=== PATIENT | female | born 1985 | race Caucasian/White ===

== ENCOUNTER 2022-09-07 17:03 | Emergency (ER) | payer OTHER ==
--- OUTSIDE RECORDS SUMMARY | 2022-09-07 17:07 | XMS REPORT | Continuity of Care Document ---
:1985 Author Organization [facility] t Address [address] [place] [address] Care Team Providers Name Role Phone SU PARRA Primary Care Physician Unavailable Brian Attending Clinician Unavailable AMBROSIO VARGAS Attending Clinician Unavailable MOLLY WOODALL Attending Clinician Unavailable Molly Gifford Attending Clinician Unknown, Attending Attending Clinician Unavailable UNKNOWN, ATTENDING Attending Clinician Unavailable Doctor Unassigned, [place] Attending Clinician Unavailable Adrianna Carmichael NP Attending Clinician ADRIANNA CARMICHAEL Attending Clinician Unavailable Radu Middleton Attending Clinician Marcelo Michaels Attending Clinician Brian Admitting Clinician Unavailable ADRIANNA CARMICHAEL Admitting Clinician Unavailable Marcelo Michaels Admitting Clinician Payers Payer Name Policy Type Policy Number Effective Date Expiration Date Gina mathew [facility] - [id number] 2020 [facility] 00:00:00 (MEDICARE REPLACEMENT/ADVANTA GE - HMO) [facility] [id number] 2020 [employer] [place] - 00:[place]:00 DUAL ELIGIBLE (MEDICARE REPLACEMENT/ADVANTA GE - HMO) [facility] DUAL [id number] 2021 [facility] HMO D SNP 00:00:00 MEDICAID OF [place] [id number] 2013 00:00:00 Problems Condition Condition Condition Status Onset Resolution Last Treating Co mments Source Name Details Category Date Date Treatment Clinician Date High High Disease Active 2021-10 Univers cholestero cholestero 0-14 it y of l l 00:00: [place] 00 Medical Branch Hypothyroi Hypothyroi Disease Active U nivers dism due dism due 3-11 [place]y of to defect to defect [place] in thyroid in thyroid 00 Mi dical 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 Vitamin D Vitamin D Disease Active Uni vers deficiency deficiency 9-10 it y of , , 00:00: [place] unspecifie unspecifie 00 Me dical d d Branch ACUTE ACUTE Diagnosis Active 2017-102018-09-09 Mem oria APPENDICIT APPENDICIT 0-27 04:25:00 l IS IS Active 00:00: Kirill n 08/26/2018 00 [facility] Hypothyroi Hypothyro Problem 2019-03-16 Memoria dism, idism, 11:35:02 l unspecifie unspecifie He rmann d d 03/16/2019 [facility] Pure Pure Problem 2019-03-16 Memor ia hyperchole hyperchole 11:35:02 l sterolemia sterolemia He rmann , , unspecifie unspecifie d d 03/16/2019 [facility] Unspecifie Unspecifi Problem 2019-03-16 Memoria d asthma, ed asthma, 11:35:02 l uncomplica uncomplica He rmalf haleigh haleigh 03/16/2019 [facility] Allergy Allergy Problem 2019-03-16 Me moria status to status to 11:35:02 l penicillin penicillin He rmann 9 [facility] Amnesia Amnesia Problem Active 2021-01-01 Mi moria (finding) (finding) 23:24:44 l Active Chad Problem 01/01/2021 [facility] Hypertensi Hypertens Problem Active 2021-01-01 Memoria ve yuan 23:24:44 l disorder, disorder, Herm alf systemic systemic arterial arterial (disorder) (disorder) Active Problem 01/01/2021 [facility] Hyperlipid Hyperlipi Problem Active 2021-01-01 Memoria emia demia 23:24:44 l (disorder) (disorder) He rmann Active Problem 01/01/2021 [facility] Hypothyroi Hypothyro Problem Active 2021-01-01 Memoria dism idism 23:24:44 l (disorder) (disorder) He rmann Active Problem 01/01/2021 [facility] 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 Gerson cathy impairment impairment 23:24:44 l (disorder) (disorder) He rmann Active Problem 01/01/2021 [facility] Migraine Migraine Problem Active 2021-01-01 Memoria (disorder) (disorder) 23:24:44 l Active [place] Problem 01/01/2021 [facility] No known No known Disease Unive rs active active ity of problems problems [place] [facility] Carbuncle Carbuncle Problem Active [facility] Breast Breast Problem Active [place] [facility] History of Past Illness Condition Condition Condition Status Onset Resolution Last Treating Co mments Source Name Details Category Date Date Treatment Clinician Date Unspecifie Problem 2017-102019-03-16 2019-03-16 Memoria d acute Unspecifie - 11:35:02 11:35:02 l appendicit d acute 03:58: Lucia nn is appendicit 50 is 09/01/2018 03/16/2019 [facility] Allergies, Adverse Reactions, Alerts Allergy Allergy Status Severity Reaction(s) Onset Inactive Treating Comm ents Source Name Type Date Date Clinician Amoxicil Propensi Active Nausea Univer s christine ty to and/or 02-26 ity of adverse Vomiting 00:00: [place] reaction 00 Medical s Branch Penicill Propensi Active Nausea 0 Univer s in ty to and/or 02-26 ity of adverse Vomiting 00:00: [place] reaction 00 Medical s Branch AMOXICIL DRUG Active N/V 0 Univers CHRISTINE INGREDI - ity of 00:00: [place] 00 Medical Branch PENICILL DRUG Active N/V 0 Univers IN INGREDI 4- ity of 00:00: [place] 00 Medical Branch penicill penicill Active Memori a ins ins l Chad Amoxicil Allergy Active Vomiting [place] [facility] Social History Social Habit Start Date Stop Date Quantity Comments Source Exposure to 2022-08-03 2022-08-13 Not sure [facility] SARS-CoV-2 00:00:00 17:52:00 [place] [facility] (event) Branch Tobacco use and 2022-08-13 2022-08-13 Smokeless tobacco Un iversity of exposure 00:00:00 00:00:00 non-user [facility] Social History 2018-08-27 2018-08-27 [facility] Lesia traore 09:20:36 09:20:36 Sex [birth year] Universit y of 00:00:00 00:00:00 [facility] Smoking Status Start Date Stop Date Source Never smoked tobacco [facility] Tobacco smoking consumption Univ ersity of [facility] unknown Branch Medications Ordered Filled Start Stop Current Ordering Indication Dosage Frequency Signature Comments Components Source Medication Medication Date Date Medication? Clinician (SIG) Name Name sulfamethox 2021-10- Yes [id number] 1{tbl} Take 1 Univers azole-trime 0-14 10-22 tablet by it y of thoprim 00:00: 04:59 mouth in [place] (BACTRIM 00 :00 the Medical DS) 800-160 morning Branc h mg per and 1 tablet tablet in the evening. Do all this for 7 days. atorvastati Yes 10mg Take 10 mg Univers n 10 mg 8-23 by mouth ity of tablet 00:00: at [place] 00 bedtime. Medical Branch levothyroxi 2022- Yes 88ug Take 88 Un gaetano ne 88 mcg 8-13 08-14 mcg by ity of tablet 00:00: 04:59 mouth. [place] 00 :00 Medical Branch montelukast Yes TAKE 1 Univ ers 10 mg 7-22 TABLET BY ity of tablet 00:00: MOUTH ONCE [place] 00 DAILY AT Medical NIGHT Branch Cholecalcif 0 Yes 2000U Take 2,000 Univers amy, 4-20 Units by ity of Vitamin D3, 00:00[place]. [place] 50 mcg 00 Medical (2,000 Branch unit) capsule benzonatate 2020- No 200mg 200 mg, U nivers (TESSALON 4-30 04-30 Oral, ONCE ity of PERLES) 06:45: 05:44 NOW, 1 [place] capsule 200 00 :00 dose, Fri Med ical mg 02/27/21 at Branch 0145, Routine albuterol 0 Yes [id number] 2{puff} Inhale 2 Univers 90 4-30 Puffs ity of mcg/actuati 00:00: every 4 Rajan as on inhaler 00 (four) Medical hours as Branch needed for Wheezing or Shortness of Breath. benzonatate Yes [id number] 100mg Take 1 Univers 100 mg 4-30 capsule by ity of capsule 00:00: mouth 3 [place] 00 (three) Medical times Branch daily as needed for Cough. albuterol Yes [id number] 2{puff} Inhale 2 Univers 90 4-30 Puffs ity of mcg/actuati 00:00: every 4 Rajan as on inhaler 00 (four) Medical hours as Branch needed for Wheezing or Shortness of Breath. benzonatate Yes [id number] 100mg Take 1 Univers 100 mg 4-30 capsule by ity of capsule 00:00: mouth 3 [place] 00 (three) Medical times Branch daily as needed for Cough. albuterol Yes [id number] 2{puff} Inhale 2 Univers 90 4-30 Puffs ity of mcg/actuati 00:00: every 4 Rajan as on inhaler 00 (four) Medical hours as Branch needed for Wheezing or Shortness of Breath. benzonatate Yes [id number] 100mg Take 1 Univers 100 mg 4-30 capsule by ity of capsule 00:00: mouth 3 00 (three) Medical times Branch daily as needed for Cough. predniSONE 2020- No [id number] 20mg Take 1 Univers 20 mg 4-30 05-08 tablet by ity of tablet 00:00: 04:59 mouth [place] 00 :00 daily for Medical 7 days. Branch atorvastati Yes 0 Memori a n 10 mg 8-26 Refill(s) l oral tablet 20:26: Kirill n 00 levothyroxi 2019- Yes 0 Memori a ne 75 mcg 8-26 Refill(s) l (0.075 mg) 20:26: [place] oral tablet 00 montelukast 2019-0 Yes 0 Memori a 10 mg oral 8-26 Refill(s) l tablet 20:26: [place] 00 predniSONE 2019- Yes 0 Memoria 20 mg oral 8-26 Refill(s) l tablet 20:26: [place] atorvastati Yes 0 Memori a n 10 mg 8-26 Refill(s) l oral tablet 20:26: Kirill n 00 levothyroxi Yes 0 Memori a ne 75 mcg 8-26 Refill(s) l (0.075 mg) 20:26: [place] oral tablet 00 montelukast Yes 0 Memori a 10 mg oral 8-26 Refill(s) l tablet 20:26: [place] 00 predniSONE Yes 0 Memoria 20 mg oral 8-26 Refill(s) l tablet 20:26: [place] 00 atorvastati 2017-10 No Notes: Gerson cathy n 0-29 (Same As: l 02:00: Lipitor) atorvastati 2017-10 No Notes: Gerson cathy n 0-29 (Same As: l 02:00: Lipitor) albuterol 2017-10 No Notes: SEE Me moria 0-28 RT l 14:07: DOCUMENTAT [place] 00 ION (Same as: Proventil) albuterol 2017-10 No Notes: SEE Me moria 0-28 RT l 14:07: DOCUMENTAT [place] 00 ION (Same as: Proventil) montelukast 2017-10 No Notes: Gerson cathy 0-28 (Same l 14:00: as: ir) Thyroxine 2017-10 No Notes: Memori a 0-28 Take 1 l 14:00: hour Chad 00 before or 2 hours after meal; Enteral feeds may interefere with the absorption of this medication . (Same as:Synthro id, Levothroid ) montelukast 2017-10 No Notes: Gerson cathy 0-28 (Same l 14:00: as:Sing ir) Thyroxine 2017-10 No Notes: Memori a 0-28 Take 1 l 14:00: hour [place] 00 before or 2 hours after meal; Enteral feeds may interefere with the absorption of this medication . (Same as:Synthro id, Levothroid ) neostigmine 2017-10 No Route: IV, Memoria (ANES) 0-28 Drug form: l 13:58: INJ, ONCE, Stop date: 08/27/18 8:58:00 CDT ondansetron 2017-10 No Route: IV, Memoria (ANES) 0-28 Drug form: l 13:58: INJ, ONCE, Stop date: 08/27/18 8:58:00 CDT dexamethaso 2017-10 No Route: IV, Memoria ne (ANES) 0-28 Drug form: l 13:58: INJ, ONCE, Stop date: 08/27/18 8:58:00 CDT ketOROLAC 2017-10 No IV, ONCE Gerson cathy (ANES) 0-28 l 13:58: glycopyrrol 2017-10 No Route: IV, Memoria ate (ANES) 0-28 Drug form: l 13:58: INJ, ONCE, Stop date: 08/27/18 8:58:00 CDT neostigmine 2017-10 No Route: IV, Memoria (ANES) 0-28 Drug form: l 13:58: INJ, ONCE, Stop date: 08/27/18 8:58:00 CDT ondansetron 2017-10 No Route: IV, Memoria (ANES) 0-28 Drug form: l 13:58: INJ, ONCE, Stop date: 08/27/18 8:58:00 CDT dexamethaso 2017-10 No Route: IV, Memoria ne (ANES) 0-28 Drug form: l 13:58: INJ, ONCE, Stop date: 08/27/18 8:58:00 CDT ketOROLAC 2017-10 No IV, ONCE Gerson cathy (ANES) 0-28 l 13:58: glycopyrrol 2017-10 No Route: IV, Memoria ate (ANES) 0-28 Drug form: l 13:58: INJ, ONCE, Stop date: 08/27/18 8:58:00 CDT Acetaminoph 2017-10 No Notes: Do M emoria en 300 MG / 0-28 not exceed l Codeine 13:57: 4gm/day of Herm acetaminop 30 MG Oral hen. (Same Tablet as: [Tylenol Tylenol with with Codeine #3] Codeine # 3) Morphine 2017-10 No Notes: Memoria 0-28 Preservati l 13:57: ve free. 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 (Same Tablet as: [Tylenol Tylenol with with Codeine #3] Codeine # 3) Morphine 2017-10 No Notes: Memoria 0-28 Preservati l 13:57: ve free. 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 clindamycin 2017-10 No Route: IV, Memoria (ANES) 0-28 Drug form: l 13:45: INJ, ONCE, [place] Stop date: 08/27/18 8:45:00 CDT clindamycin 2017-10 No Route: IV, Memoria (ANES) 0-28 Drug form: l 13:45: INJ, ONCE, [place] Stop date: 08/27/18 8:45:00 CDT fentaNYL 2017-10 No Route: IV, Mem oria (ANES) 0-28 Drug form: l 13:40: INJ, ONCE, Chad 00 Stop date: 08/27/18 8:40:00 CDT rocuronium 2017-10 No Route: IV, M emoria (ANES) 0-28 Drug form: l 13:40: INJ, ONCE, Chad 00 Stop date: 08/27/18 8:40:00 CDT propofol 2017-10 No Route: IV, Mem oria (ANES) 0-28 Drug form: l 13:40: INJ, ONCE, Chad 00 Stop date: 08/27/18 8:40:00 CDT fentaNYL 2017-10 No Route: IV, Mem oria (ANES) 0-28 Drug form: l 13:40: INJ, ONCE, [place] 00 Stop date: 08/27/18 8:40:00 CDT rocuronium 2017-10 No Route: IV, Татьяна emoria (ANES) 0-28 Drug form: l 13:40: INJ, ONCE, Chad 00 Stop date: 08/27/18 8:40:00 CDT propofol 2017-10 No Route: IV, Mem oria (ANES) 0-28 Drug form: l 13:40: INJ, ONCE, Stop date: 08/27/18 8:40:00 CDT midazolam 2017-10 No Route: IV, Me moria (ANES) 0-28 Drug form: l 13:35: SOLN, Chad 00 ONCE, Stop date: 08/27/18 8:35:00 CDT lidocaine 2017-10 No Route: IV, Me moria (ANES) 0-28 Drug form: l 13:35: INJ, ONCE, [place] 00 Stop date: 08/27/18 8:35:00 CDT midazolam 2017-10 No Route: IV, Me moria (ANES) 0-28 Drug form: l 13:35: SOLN, Chad 00 ONCE, Stop date: 08/27/18 8:35:00 CDT lidocaine 2017-10 No Route: IV, Me moria (ANES) 0-28 Drug form: l 13:35: INJ, ONCE, [place] 00 Stop date: 08/27/18 8:35:00 CDT Lactated 2017-10 No Route: IV, Mem oria Ringers 0-28 Total l Injection 12:53: Volume: Lucia nn IV (ANES) 00 1,000, 1000 mL Start date: 08/27/18 7:53:00 CDT, Stop date: 08/27/18 8:53:00 CDT Lactated 2017-10 No Route: IV, Mem oria Ringers 0-28 Total l Injection 12:53: Volume: Lucia nn IV (ANES) 00 1,000, 1000 mL Start date: 08/27/18 7:53:00 CDT, Stop date: 08/27/18 8:53:00 CDT influenza 2017-10 No Notes: Memori a virus 0-28 (Same as: l vaccine, : Fluzone Kirill n inactivated 52 Quadrivale nt, Fluarix Quadrivale nt) For 3 years of age and older (0.5 mL IM) Shake well before use influenza 2017-10 No Notes: Memori a virus 0-28 (Same as: l vaccine, : Fluzone Kirill n inactivated 52 Quadrivale nt, Fluarix Quadrivale nt) For 3 years of age and older (0.5 mL IM) Shake well before use 200 ACTUAT 2017-10 Yes 2 puff, Gerson cathy Albuterol 0-28 INHALER, l 0.09 09:24: Q4H, PRN [place] MG/ACTUAT 00 wheezing, Metered coughing, Dose or Inhaler shortness [ProAir of breath, HFA] # 1 ea, 1 Refill(s) montelukast 2017-10 Yes 10 mg, PO, Memoria 0-28 Daily, 0 l 09:24: Refill(s) [place] 00 atorvastati 2017-10 Yes 10 mg, PO, Memoria n 0-28 Bedtime, 0 l 09:24: Refill(s) [place] 00 Thyroxine 2017-10 Yes 75 Memoria 0-28 microgram, l 09:24: PO, Daily, [place] 00 0 Refill(s) 200 ACTUAT 2017-10 Yes 2 puff, Gerson cathy Albuterol 0-28 INHALER, l 0.09 09:24: Q4H, PRN [place] MG/ACTUAT 00 wheezing, Metered coughing, Dose or Inhaler shortness [ProAir of breath, HFA] # 1 ea, 1 Refill(s) montelukast 2017-10 Yes 10 mg, PO, Memoria 0-28 Daily, 0 l 09:24: Refill(s) [place] 00 atorvastati 2017-10 Yes 10 mg, PO, Memoria n 0-28 Bedtime, 0 l 09:24: Refill(s) Thyroxine 2017-10 Yes 75 Memoria 0-28 microgram, l 09:24: PO, Daily, 0 Refill(s) atorvastati atorvastati No atorvastat [place] 10 mg n 10 mg in 10 mg da tablet TAKE tablet TAKE tablet Medical 1 TABLET BY 1 TABLET BY TAKE 1 Group MOUTH AT MOUTH AT TABLET BY BEDTIME BEDTIME MOUTH AT BEDTIME levothyroxi levothyroxi No levothyrox [place] 88 mcg ne 88 mcg ine 88 mcg da tablet TAKE tablet TAKE tablet Medical 1 TABLET BY 1 TABLET BY TAKE 1 Group MOUTH ONCE MOUTH ONCE TABLET BY DAILY DAILY MOUTH ONCE DAILY montelukast montelukast No montelukas [place] 10 mg 10 mg t 10 mg da tablet TAKE tablet TAKE tablet Medical 1 TABLET BY 1 TABLET BY TAKE 1 Group MOUTH ONCE MOUTH ONCE TABLET BY DAILY AT DAILY AT MOUTH ONCE NIGHT NIGHT DAILY AT NIGHT sulfamethox sulfamethox No sulfametho [place] azole 800 azole 800 xazole 800 da mg-trimetho mg-trimetho mg-trimeth Medical prim 160 mg prim 160 mg oprim 160 Group tablet TAKE tablet TAKE mg tablet 1 TABLET BY 1 TABLET BY TAKE 1 MOUTH IN MOUTH IN TABLET BY THE MORNING THE MORNING MOUTH IN AND 1 AND 1 THE TABLET IN TABLET IN MORNING THE EVENING THE EVENING AND 1 FOR 7 DAYS FOR 7 DAYS TABLET IN THE EVENING FOR 7 DAYS Vital Signs Vital Name Observation Time Observation Value Comments Source BP Diastolic 2022-08-23 00:00:00 87 mm[facility]Hg[facility] Height 2022-08-23 00:00:00 62 [in_i] [facility] BMI (Body Mass 2022-08-23 00:00:00 33.1 kg/m2 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 Body Weight 2022-08-23 00:00:00 181 [lb_av] [facility] Systolic blood 2022-08-13 23:02:00 121 mm[Hg] Ruchi merritt of pressure [facility] Diastolic blood 2022-08-13 23:02:00 79 mm[Hg] Unive rsity of pressure [place] [facility] Heart rate 2022-08-13 23:02:00 86 /min Universi ty of [place] [facility] Body temperature 2022-08-13 23:02:00 37.11 Terri Univ ersity of [place] [facility] Respiratory rate 2022-08-13 23:02:00 18 /min Univ ersity of [place] [facility] Body height 2022-08-13 23:02:00 157.5 cm Universi ty [facility] [place] [facility] Body weight 2022-08-13 23:02:00 81.761 kg [facility] [place] [facility] BMI 2022-08-13 23:02:00 32.97 kg/m2 Universi ty [facility] [place] [facility] Oxygen saturation in 2022-08-13 23:02:00 97 /min University of Arterial blood by [facility] Pulse oximetry Branch Systolic blood 2021-02-27 07:01:48 133 mm[Hg] Univer sity of pressure [place] [facility] Diastolic blood 2021-02-27 07:01:48 85 mm[Hg] Unive rsity of pressure [place] [facility] Heart rate 2021-02-27 07:01:48 76 /min Universi ty [facility] [place] [facility] Respiratory rate 2021-02-27 07:01:48 19 /min Univ ersity of [place] [facility] Oxygen saturation in 2021-02-27 07:01:48 98 /min University of Arterial blood by [facility] Pulse oximetry Branch Body temperature 2021-02-27 02:47:00 37.28 Terri Univ [facility]ity [facility] [place] [facility] Body height 2021-02-27 02:47:00 157.5 cm Universi ty [facility] [place] [facility] Body weight 2021-02-27 02:47:00 86.637 kg [facility] [place] [facility] BMI 2021-02-27 02:47:00 34.93 kg/m2 [facility]i ty [facility] [place] [facility] Weight 2020-09-02 20:31:00 Jillian Bonilla BMI Calculated 2020-09-02 20:31:00 Stanford Stallings Systolic (mm Hg) 2020-09-02 20:31:00 Gerson Bonilla Diastolic (mm Hg) 2020-09-02 20:31:00 Joon Bonilla Heart Rate 2020-09-02 20:31:00 [facility] [place] Respitory Rate 2020-09-02 20:31:00 Memori al [place] Height 2020-09-02 20:31:00 157.48 cm [facility] [place] Systolic (mm Hg) 2020-08-01 20:24:00 Gerson rial [place] Diastolic (mm Hg) 2020-08-01 20:24:00 Mem orial [place] Heart Rate 2020-08-01 20:24:00 [facility] [place] Respitory Rate 2020-08-01 20:24:00 Memori al [place] Height 2020-08-01 20:24:00 157.48 cm [facility] [place] Weight 2020-08-01 20:24:00 [facility] [place] BMI Calculated 2020-08-01 20:24:00 Memori al [place] Systolic (mm Hg) 2020-06-25 20:18:00 Gerson rial [place] Diastolic (mm Hg) 2020-06-25 20:18:00 Mem orial [place] Heart Rate 2020-06-25 20:18:00 [facility] [place] Respitory Rate 2020-06-25 20:18:00 Memori al [place] Height 2020-06-25 20:18:00 157.48 cm [facility] [place] Weight 2020-06-25 20:18:00 [facility] [place] BMI Calculated 2020-06-25 20:18:00 Memori al [place] Systolic (mm Hg) 2018-08-27 21:00:00 Gerson rial [place] Diastolic (mm Hg) 2018-08-27 21:00:00 Mem orial [place] Respitory Rate 2018-08-27 21:00:00 Memori al [place] Heart Rate 2018-08-27 21:00:00 [facility] [place] Temperature Oral (F) 2018-08-27 21:00:00 98.4 F [facility] [place] Heart Rate 2018-08-27 17:00:00 [facility] [place] Temperature Oral (F) 2018-08-27 17:00:00 98.1 F [facility] [place] Systolic (mm Hg) 2018-08-27 17:00:00 Gerson rial [place] Diastolic (mm Hg) 2018-08-27 17:00:00 Mem orial [place] Respitory Rate 2018-08-27 17:00:00 Memori al [place] Systolic (mm Hg) 2018-08-27 15:35:00 Gerson rial [place] Diastolic (mm Hg) 2018-08-27 15:35:00 Mem orioctaviano [place] Respitory Rate 2018-08-27 15:35:00 Stanford Stallings Temperature Oral (F) 2018-08-27 11:41:00 98.9 F [facility] [place] Heart Rate 2018-08-27 11:41:00 [facility] [place] BMI Calculated 2018-08-27 09:22:00 Stanford Azevedoann Height 2018-08-27 09:22:00 157.48 cm [facility] [place] Weight 2018-08-27 09:22:00 [facility] Procedures Procedure Date / Time Performing Clinician Source Performed ASSIGNMENT OF BENEFITS 2022-08-13 22:52:32 Doctor Unassigned, [facility] [place] [facility] XR CHEST 1 VW 2021-02-27 05:53:31 Adrianna Carmichael [facility] Medical Branch COVID-19 (ID NOW RAPID 2021-02-27 05:45:00 Adrianna Carmichael [facility] TESTING) Medical Branch NOTICE OF PRIVACY 2021-02-27 02:35:47 Doctor Unassigned, [facility] PRACTICES [place] [facility] CONSENT/REFUSAL FOR 2021-02-27 02:35:09 Doctor Unassigned, [facility] DIAGNOSIS AND TREATMENT [place] [facility] Other 2010-03-02 00:00:00 [place] [facility] Excision of cyst of breast Memor ial [place] Appendectomy [place] [facility] Cholecyst[facility] [place] [facility] Plan of Care Planned Activity Planned Date Details Comments Source Instructions [place] [facility] Encounters Start End Encounter Admission Attending Care Care Encounter Source Date/Time Date/Time Type Type Clinicians Facility Department ID 2022-09-07 2022-09-07 Outpatient Gucci_J [facility] [id number] [place] 00:00:00 00:00:00 1108 [facility] 2022-08-27 2022-08-27 Outpatient SERENE VARGAS [facility] [id number] [place] 06:19:00 06:19:00 AMBROSIO -[id number] [facility] 2022-08-23 2022-08-23 Outpatient Brian MMG MMG [id number] [place] 00:00:00 00:00:00 1024 Medical Group 2022-08-23 2022-08-23 Ambrosio [facility] [place] - [id number] M atagor 00:00:00 00:00:00 DO Gucci: [facility] [address] [place] [address] [facility] [place] - [address], [facility] [place] [address] , Ph. [phone] 2022-08-20 2022-08-20 [facility] [id number] [place] 00:00:00 00:00:00 1021 Medical [facility] 2022-08-13 2022-08-13 Outpatient R [facility], [facility] [id number] Univers 18:00:00 18:18:02 MOLLY arcos f [facility] 2022-08-13 2022-08-13 Urgent Sarah Woodalltany [facility] [id number] Univers 18:00:00 18:18:02 Care Unknown, Attending HEALTH [id number] ity of [place] [id number] Rajan as LEX?BLEA [phone] [address] MEDICAL OFFICE BUILDING 2022-08-13 2022-08-13 Outpatient R UNKNOWN, [facility] [id number] Univers 18:00:00 18:00:00 ATTENDING ity [facility] 2022-08-13 2022-08-13 Outpatient R UNKNOWN, [facility] [id number] Univers 18:00:00 18:00:00 ATTENDING ity [facility] 2022-08-13 2022-08-13 Orders Doctor VLILEDA [id number] Univers 00:00:00 00:00:00 Only Unassigned, CHRISTIANO [id number] ity of [place] [facility] [id number] Rajan as [phone] [address] 2021-02-26 2021-02-27 Emergency [facility] [id number] Univers 21:51:00 02:05:00 Adrianna Velasquez [id number] ity of [place] [id number] [facility] [phone] [place] [id number] [address] 2021-02-26 2021-02-27 Emergency X AMOL, [facility] ERT [id number] Univers 21:51:00 02:05:00 ADRIANNA quigleyadelfo [facility] 2020-12-30 2020-12-30 Ambulatory nullFlavo MNA [id number] Memoria 20:30:00 20:30:00 Pre-Reg r Neurology 04 l [place] 2020-12-30 2020-12-30 Ambulatory nullFlavo MNA [id number] Memoria 20:30:00 20:30:00 Pre-Reg r Neurology 04 l [place] 2020-12-30 2020-12-30 Outpatient MHIE MHIE [id number] Memoria 14:30:00 14:30:00 04 l [place] 2020-12-30 2020-12-30 Outpatient KELSEY Middleton MISCHER [id number] 14:30:00 14:30:00 Radu 04 [place] 2020-09-02 2020-09-03 Outpatient nullFlavo MNA [id number] Memoria 20:30:00 05:59:59 r Neurology 03 l [place] 2020-09-02 2020-09-03 Outpatient nullFlavo MNA [id number] Memoria 20:30:00 05:59:59 r Neurology 03 l [place] 2020-09-02 2020-09-02 Outpatient KELSEY Middleton MISCHER [id number] 14:30:00 23:59:59 Radu 03 [place] 2020-09-02 2020-09-02 Outpatient MHIE MHIE [id number] Memoria 14:30:00 14:30:00 03 l [place] 2020-08-05 2020-08-06 Outpatient nullFlavo MNA [id number] Memoria 19:00:00 04:59:59 r Neurology 02 l [place] 2020-08-05 2020-08-06 Outpatient nullFlavo MNA [id number] Memoria 19:00:00 04:59:59 r Neurology 02 l [place] 2020-08-05 2020-08-05 Outpatient KATARINA MiddletonMISCHER MHMISCHER [id number] 14:00:00 23:59:59 Radu 02 [facility] 2020-08-05 2020-08-05 Outpatient MHIE MHIE [id number] Memoria 14:00:00 14:00:00 02 [facility] 2020-08-01 2020-08-02 Outpatient nullFlavo MNA [id number] Memoria 20:30:00 04:59:59 r Neurology 01 l [facility] 2020-08-01 2020-08-02 Outpatient nullFlavo MNA [id number] Memoria 20:30:00 04:59:59 r Neurology 01 l [facility] 2020-08-01 2020-08-01 Outpatient Kane, MISCHER MISCHER [id number] 15:30:00 23:59:59 Radu [facility] 2020-08-01 2020-08-01 Outpatient MHIE MHIE [id number] Memoria 15:30:00 15:30:00 01 [facility] 2020-06-25 2020-06-26 Outpatient nullFlavo MNA [id number] Memoria 20:15:00 04:59:59 r Neurology 00 l [facility] 2020-06-25 2020-06-26 Outpatient nullFlavo MNA [id number] Memoria 20:15:00 04:59:59 r Neurology 00 l [facility] 2020-06-25 2020-06-25 Outpatient Kane MISCHER MISCHER [id number] 15:15:00 23:59:59 Radu 00 [facility] 2020-06-25 2020-06-25 Outpatient MHIE MHIE [id number] Memoria 15:15:00 15:15:00 00 [facility] 2018-08-27 2018-08-27 Bedded nullFlavo [facility] [id number] Memoria 20:07:00 22:00:00 Outpatient r [place] [address] [facility] 2018-08-27 2018-08-27 Bedded nullFlavo [facility] [id number] Memoria 20:07:00 22:00:00 Outpatient r [place] 01 [facility] 2018-08-27 2018-08-27 Outpatient Ekhaese, MHPL MHPL [id number] 15:07:00 17:00:00 Obonorumemiliano Henleyariabe 2017-01-30 2017-01-30 Outpatient Young_J MMG [facility] [id number] [place] 00:00:00 00:00:00 [id number] Results Test Description Test Time Test Comments Results Result Comments Source COVID-19 (ID NOW RAPID TESTING) 2021-02-27 06:08:44 Test Item Value Reference Range Interpretation Comme nts SARS-CoV-2 Rapid ID NOW (test code Not Detected Not Detected = 02910-0) ABHINAV (test code = ABHINAV) ID NOW COVID-19 Assay is an isothermal nucleic acid amplification test intended for the qualitative detection of nucleic acid from SARS-CoV-2 viral RNA in nasopharyngeal (FRINGE WEAVER) specimens. It is used under Emergency Use Authorization (EUA) by FDA. The limit of detection (LOD) of the assay is 125 Genome Equivalents/mL. A positive result is indicative of the presence of SARS-CoV-2 RNA. ?Clinical correlation with patient history and other diagnostic information is necessary to determine patient infection status. A negative (Not Detected) result does not preclude SARS-CoV-2 infection. In patients with clinical symptoms and other tests that are consistent with SARS-CoV-2 infection, negative results should be treated as presumptive negative and a new specimen should be tested with alternative PCR molecular test. Invalid: Please collect a new specimen for repeat patient testing if clinically indicated. Lab Interpretation (test code = Normal 32265-5) [facility]
[2022-09-07] MEDS ORDERED: ONDANSETRON 4 MG (ODT) TAB ONE (17:29)
[2022-09-07 17:41] LABS: Urine Blood 1+ (Negative); Urine Glucose Negative (Negative); Urine Protein Trace (Negative); Urine Specific Gravity >=1.030 (1.005-1.030)
[2022-09-07 18:22] LABS: Urine Bacteria 20-50 /HPF (<20); Urine Mucus 1+ /HPF (None Seen); Urine RBC <5 /HPF (None Seen); Urine WBC Clump Few /HPF (None Seen)
[2022-09-07 18:39] LABS: SARS-COV-2 RT PCR NEGATIVE (NEGATIVE)
--- NOTE | 2022-09-07 19:05 | ER ---
Nurse's Notes [facility] Name: Deuce Fuller Age: 37 yrs Sex: Female : 1985 Arrival Date: 09/07/2022 Time: 17:07 Bed Treatment Private MD: Diagnosis: Nausea with vomiting, unspecified;Influenza due to other identified influenza virus with gastrointestinal manifestations;UTI/ Urinary tract infection, site not specified Presentation: 09/07 17:11 Chief complaint: Patient states: I went with my friend yesterday , i woke up and had a iw cough and puked, can't hold food down, mild Headache, no fever , denies sore throat. Coronavirus screen: Client presents with at least one sign or symptom that may indicate coronavirus-19. Ebola Screen: Patient negative for fever greater than or equal to 101.5 degrees Fahrenheit, and additional compatible Ebola Virus Disease symptoms Patient denies exposure to infectious person. Patient denies travel to an Ebola-affected area in the 21 days before illness onset. No symptoms or risks identified at this time. Initial Sepsis Screen: Does the patient meet any 2 criteria? No. Patient's initial sepsis screen is negative. Does the patient have a suspected source of infection? No. Patient's initial sepsis screen is negative. Risk Assessment: Do you want to hurt yourself or someone else? Patient reports no desire to harm self or others. Onset of symptoms was September 07, 2022. 17:11 Method Of Arrival: Ambulatory iw 17:11 Acuity: RAUL 4 iw Historical: - Allergies: 17:13 Amoxicillin; iw 17:13 PENICILLINS; iw - Home Meds: 17:13 levothyroxine oral [Active]; iw - PMHx: 17:13 Hypothyroidism; Hypercholesterolemia; iw - PSHx: 17:13 Cholecystectomy; Appendectomy; scar tissure removed from left breast; iw - Immunization history:: Client reports receiving the 2nd dose of the Covid vaccine. - Social history:: Smoking status: Patient denies any tobacco usage or history of. Screenin:22 Abuse screen: Denies threats or abuse. Denies injuries from another. Nutritional iw screening: No deficits noted. Tuberculosis screening: No symptoms or risk factors identified. Fall Risk None identified. Assessment: 17:21 General: Appears in no apparent distress. Behavior is calm, cooperative. General: iw Reports feeling ill for fatigue for. Pain: Denies pain. Neuro: Level of Consciousness is awake, alert, obeys commands, Oriented to person, place, time, situation. GI: Abdomen is non-distended, Reports nausea, vomiting. Derm: Skin is intact, is healthy with good turgor. Musculoskeletal: Range of motion: intact in all extremities. 19:24 Reassessment: Patient appears in no apparent distress at this time. Patient and/or iw family updated on plan of care and expected duration. Pain level reassessed. Patient is alert, oriented x 3, equal unlabored respirations, skin warm/dry/pink. Vital Signs: 17:11 BP 133 / 94; Pulse 105; Resp 16; Temp 99.6; Pulse Ox 100% on R/A; Weight 82.1 kg; iw Height 5 ft. 2 in. (157.48 cm); 17:11 Body Mass Index 33.10 (82.10 kg, 157.48 cm) iw ED Course: 17:07 Patient arrived in ED. as 17:08 Jay Cardona PA is PHCP. cp 17:08 Shahriar Neville MD is Attending Physician. cp 17:13 Triage completed. iw 17:14 Arm band placed on. iw 17:21 Jolynn Scott, RN is Primary Nurse. iw 17:28 COVID-19/FLU A+B/RSV (Document "Date of Onset" if Symptomatic) Sent. iw 19:24 Patient has correct armband on for positive identification. iw 19:25 No provider procedures requiring assistance completed. Patient did not have IV access iw during this emergency room visit. Administered Medications: 17:33 Not Given (Physician Discretion): Zofran (Ondansetron) 4 mg IVP once; over 2 minutes iw 17:33 Drug: Ondansetron 4 mg Route: PO; iw 19:24 Drug: Rocephin (cefTRIAXone) 1 grams Route: IM; Site: left ventrogluteal; iw 19:24 Drug: Tamiflu (oseltamivir) 75 mg Route: PO; iw Medication: 17:22 VIS not applicable for this client. iw Outcome: 19:05 Discharge ordered by . cp 19:24 Discharged to home ambulatory. iw 19:24 Condition: good 19:24 Discharge instructions given to patient, Instructed on discharge instructions, follow up and referral plans. Demonstrated understanding of instructions, follow-up care, medications, Prescriptions given X 4. 19:25 Patient left the ED. iw Signatures: Ruma Gillette Irene, RN RN iw Jay Cardona PA PA cp
--- NOTE | 2022-09-07 19:05 | EDPHYS ---
Physician Documentation [facility] Name: Deuce Fuller Age: 37 yrs Sex: Female : 1985 Arrival Date: 09/07/2022 Time: 17:07 Bed Treatment Private MD: ED Physician Shahriar Neville HPI: 09/07 17:23 This 37 yrs old Female presents to ER via Ambulatory with complaints of Fever, Vomiting.cp 17:23 The patient presents to the emergency department with vomiting, that is intermittent, cp described as bilious. Onset: The symptoms/episode began/occurred this morning. Associated signs and symptoms: Pertinent positives: fever, cough, Pertinent negatives: constipation, diarrhea, active vomiting. Historical: - Allergies: 17:13 Amoxicillin; iw 17:13 PENICILLINS; iw - Home Meds: 17:13 levothyroxine oral [Active]; iw - PMHx: 17:13 Hypothyroidism; Hypercholesterolemia; iw - PSHx: 17:13 Cholecystectomy; Appendectomy; scar tissure removed from left breast; iw - Immunization history:: Client reports receiving the 2nd dose of the Covid vaccine. - Social history:: Smoking status: Patient denies any tobacco usage or history of. ROS: 17:30 Constitutional: Negative for fever, poor PO intake. cp 17:30 Eyes: Negative for injury, pain, redness, and discharge. cp 17:30 ENT: Negative for drainage from ear(s), ear pain, sore throat, difficulty swallowing, difficulty handling secretions. 17:30 Cardiovascular: Negative for chest pain, palpitations. 17:30 Respiratory: Positive for cough, Negative for shortness of breath, wheezing. 17:30 Abdomen/GI: Positive for vomiting, Negative for abdominal pain, diarrhea, constipation. 17:30 Neuro: Positive for headache, Negative for altered mental status, weakness. 17:30 All other systems are negative. Exam: 17:33 Constitutional: The patient appears in no acute distress, alert, awake, non-toxic, well cp developed, well nourished. 17:33 Head/Face: Normocephalic, atraumatic. cp 17:33 Eyes: Periorbital structures: appear normal, Conjunctiva: normal, no exudate, no injection, Sclera: no appreciated abnormality, Lids and lashes: appear normal, bilaterally. 17:33 ENT: External ear(s): are unremarkable, Ear canal(s): are normal, clear, TM's: dullness, bilaterally, Nose: is normal, Mouth: Lips: moist, Oral mucosa: pink and intact, moist, Posterior pharynx: Airway: no evidence of obstruction, patent, Tonsils: no enlargement, no exudate, erythema, is not appreciated, exudate, is not appreciated. 17:33 Neck: ROM/movement: is normal, is supple, without pain, no range of motions limitations, Lymph nodes: no appreciated lymphadenopathy. 17:33 Chest/axilla: Inspection: normal. 17:33 Cardiovascular: Rate: tachycardic, Rhythm: regular. 17:33 Respiratory: the patient does not display signs of respiratory distress, Respirations: normal, no use of accessory muscles, no retractions, labored breathing, is not present, Breath sounds: are clear throughout, no decreased breath sounds, no stridor, no wheezing. 17:33 Abdomen/GI: Inspection: abdomen appears normal, Palpation: abdomen is soft and non-tender, in all quadrants. 17:33 Back: pain, is absent, ROM is normal. 17:33 Skin: no rash present. Vital Signs: 17:11 BP 133 / 94; Pulse 105; Resp 16; Temp 99.6; Pulse Ox 100% on R/A; Weight 82.1 kg; iw Height 5 ft. 2 in. (157.48 cm); 17:11 Body Mass Index 33.10 (82.10 kg, 157.48 cm) iw MDM: 17:20 Patient medically screened. cp 19:05 Data reviewed: vital signs, nurses notes, lab test result(s). cp 19:05 Differential diagnosis: gastritis, cholecystitis, appendicitis, viral gastroenteritis, cp gastroenteritis. Counseling: I had a detailed discussion with the patient and/or guardian regarding: the historical points, exam findings, and any diagnostic results supporting the discharge/admit diagnosis, lab results, the need for outpatient follow up, a family practitioner, to return to the emergency department if symptoms worsen or persist or if there are any questions or concerns that arise at home. Response to treatment: the patient's symptoms have markedly improved after treatment, and as a result, I will discharge patient. 09/07 17:15 Order name: COVID-19/FLU A+B/RSV (Document "Date of Onset" if Symptomatic); Complete iw Time: 18:58 09/07 18:58 Interpretation: INFLUENZA A POSITIVE; Reviewed. cp 09/07 17:23 Order name: Urine Microscopic Only; Complete Time: 18:58 cp 09/07 18:58 Interpretation: Reviewed. cp 09/07 17:42 Order name: Urine Dipstick-Ancillary; Complete Time: 18:58 EDMS 09/07 18:58 Interpretation: Normal except: UBLD 1+; UKET Trace; UPROT Trace. cp 09/07 18:26 Order name: Urine Culture EDMS 09/07 17:23 Order name: Urine Dipstick-Ancillary (obtain specimen); Complete Time: 17:41 cp 09/07 17:23 Order name: Urine Test (obtain specimen); Complete Time: 17:41 cp 09/07 18:22 Order name: PO challenge; Complete Time: 18:44 cp Administered Medications: 17:33 Not Given (Physician Discretion): Zofran (Ondansetron) 4 mg IVP once; over 2 minutes iw 17:33 Drug: Ondansetron 4 mg Route: PO; iw 19:24 Drug: Rocephin (cefTRIAXone) 1 grams Route: IM; Site: left ventrogluteal; iw 19:24 Drug: Tamiflu (oseltamivir) 75 mg Route: PO; iw Disposition Summary: 09/07/22 19:05 Discharge Ordered Location: Home cp Problem: new cp Symptoms: have improved cp Condition: Stable cp Diagnosis - Nausea with vomiting, unspecified cp - Influenza due to other identified influenza virus with gastrointestinal cp manifestations - UTI/ Urinary tract infection, site not specified cp Followup: cp - With: Private Physician - When: 2 - 3 days - Reason: Recheck today's complaints Discharge Instructions: - Discharge Summary Sheet cp - Urinary Tract Infection, Adult cp Forms: - Medication Reconciliation Form cp - Thank You Letter cp - Antibiotic Education cp - Prescription Opioid Use cp Prescriptions: - Zofran 4 mg Oral Tablet - take 1 tablet by ORAL route every 12 hours As needed; 20 tablet; Refills: 0, cp Product Selection Permitted - Macrobid 100 mg Oral Capsule - take 1 capsule by ORAL route every 12 hours for 7 days; 14 capsule; Refills: 0, cp Product Selection Permitted - Tamiflu 75 mg Oral Capsule - take 1 tablet by ORAL route every 12 hours for 5 days; 10 tablet; Refills: 0, cp Product Selection Permitted - Ibuprofen 800 mg Oral Tablet - take 1 tablet by ORAL route every 8 hours As needed take with food; 30 tablet; cp Refills: 0, Product Selection Permitted Addendum: 09/09/2022 07:35 Co-signature as Attending Physician, Shahriar Neville MD. r n Signatures: Dispatcher [employer] Jolynn Ambrocio RN RN iw Nieto, Roman, MD MD rn Jay Cardona PA PA cp Corrections: (The following items were deleted from the chart) 09/07 18:58 18:58 Reviewed. cp cp
[2022-09-07] MEDS ORDERED: OSELTAMIVIR 75 MG CAP ONE (19:16)
[2022-09-07] MEDS ORDERED: LIDOCAINE 1% MPF 5 ML VIAL ONE (19:16)
[2022-09-07] MEDS ORDERED: CEFTRIAXONE 1000 MG/VIAL ONE (19:16)
[2022-09-07 19:55] VITALS: BP 133/94; TEMP 99.6; O2SAT 100
== END 2022-09-07 19:25 | disposition home or self-care (01) ==
LOC: ER 17:03
DX: J10.2 Influenza due to other identified influenza virus with gastrointestinal manifestations (principal); R11.2 Nausea with vomiting, unspecified; Z20.822 Contact with and (suspected) exposure to COVID-19
CPT/HCPCS: 87088; 87086; 0241U; 96372; 99283; J2001; Q0162; 81003; 81015

== ENCOUNTER 2023-09-14 07:55 | Emergency (ER) | payer OTHER ==
--- OUTSIDE RECORDS SUMMARY | 2023-09-14 08:06 | XMS REPORT | Continuity of Care Document ---
:1985 Author Organization [facility] t Address [address] [place] [address] Care Team Providers Name Role Phone SU PARRA Primary Care Physician Unavailable Brian Attending Clinician Unavailable AMBROSIO VARGAS Attending Clinician Unavailable MOLLY WOODALL Attending Clinician Unavailable Molly Gifford Attending Clinician Unknown, Attending Attending Clinician Unavailable UNKNOWN, ATTENDING Attending Clinician Unavailable Doctor Unassigned, Vader Attending Clinician Unavailable Adrianna Pablo NP Attending Clinician ADRIANNA PABLO Attending Clinician Unavailable Radu Middleton Attending Clinician Marcelo Michaels Attending Clinician Brian Admitting Clinician Unavailable ADRIANNA PABLO Admitting Clinician Unavailable Marcelo Michaels Admitting Clinician Payers Payer Name Policy Type Policy Number Effective Date Expiration Date Gina deidrewilliam [facility] - [id number] 2020 [facility] 00:00:00 (MEDICARE REPLACEMENT/ADVANTA GE - HMO) [facility] [id number] 2020 [employer] [place] - 00:[place]:00 DUAL ELIGIBLE (MEDICARE REPLACEMENT/ADVANTA GE - HMO) [facility] DUAL [id number] 2021 [facility] HMO D SNP 00:00:00 [place] [id number] 2013 00:00:00 Problems Condition Condition Condition Status [...] [place] in thyroid [place] thyroid 00 Id dical 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 Vitamin D Vitamin D Disease Active Uni vers deficiency deficiency 9-10 it y of , , 00:00: [place] unspecifie unspecifie 00 Me dical d d Branch ACUTE ACUTE Diagnosis Active 2017-102018-09-09 Mem oria APPENDICIT APPENDICIT 0-27 04:25:00 l IS IS Active 00:00: Chad 08/26/2018 00 [facility] [place] [facility] Hypothyroi Hypothyro Problem 2019-03-16 Memoria dism, idism, 11:35:02 l unspecifie unspecifie He rmann d d 03/16/2019 [facility] Pure Pure Problem 2019-03-16 Memor ia hyperchole hyperchole 11:35:02 l sterolemia sterolemia He rmann , , unspecifie unspecifie d d 03/16/2019 [facility] Unspecifie Unspecifi Problem 2019-03-16 Memoria d asthma, ed asthma, 11:35:02 l uncomplica uncomplica He rmann haleigh haleigh 03/16/2019 [facility] Allergy Allergy Problem 2019-03-16 Me moria status to status to 11:35:02 l penicillin penicillin He rmann 03/16/2019 [facility] Amnesia Amnesia Problem Active 2021-01-01 Me moria (finding) (finding) 23:24:44 l Active [place] Problem 01/01/2021 [facility] Hypertensi Hypertens Problem Active 2021-01-01 Memoria ve yuan 23:24:44 l disorder, disorder, Herm alf systemic systemic arterial arterial (disorder) (disorder) Active Problem 01/01/2021 [facility] Hyperlipid Hyperlipi Problem Active 2021-01-01 Memoria emia demia 23:24:44 l (disorder) (disorder) He rmann Active Problem 01/01/2021 [facility] Hypothyroi Problem Active 2021-01-01 M emoria dism Hypothyroi 23:24:44 l (disorder) dism Kirill n (disorder) Active Problem 01/01/2021 [facility] 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 Gerson cathy impairment impairment 23:24:44 l (disorder) (disorder) Jimbo gates Active Problem 01/01/2021 [facility] Migraine Migraine Problem Active 2021-01-01 Memoria (disorder) (disorder) 23:24:44 l Active Chad Problem 01/01/2021 [facility] No known No known Disease Unive rs active active ity of problems problems [place] [facility] Carbuncle Carbuncle Problem Active [facility] Breast Breast Problem Active [place] [facility] History of Past Illness Condition Condition Condition Status Onset Resolution Last Treating Co mments Source Name Details Category Date Date Treatment Clinician Date Unspecifie Unspecifi Problem 2017-102019-03-16 2019-03-16 Memoria d acute ed acute 11-01 11:35:02 11:35:02 l appendicit appendicit 03:58: Jimbo gates is is 50 09/01/2018 03/16/2019 [facility] Allergies, Adverse Reactions, Alerts Allergy Allergy Status Severity Reaction(s) Onset Inactive Treating Comm ents Source Name Type Date Date Clinician Amoxicil Propensi Active Nausea 0 Univer s christine ty to and/or - ity of adverse Vomiting 00:00: [place] reaction 00 Medical s Branch Penicill Propensi Active Nausea 0 Univer s in ty to and/or - ity of adverse Vomiting 00:00: [place] reaction 00 Medical s Branch AMOXICIL DRUG Active N/V 2020-0 Univers CHRISTINE INGREDI 4- ity of 00:00: [place] 00 Medical Branch PENICILL DRUG Active N/V 2020-0 Univers IN INGREDI 4-29 ity of 00:00: [place] 00 Medical Branch Amoxicil Allergy Active Vomiting [place] [facility]ine to da [facility] penicill penicill Active Memori a ins ins l [place] Social History Social Habit Start Date Stop Date Quantity Comments Source Exposure to 2022-08-03 2022-08-13 Not sure University SARS-CoV-2 00:00:00 17:52:00 [place] [facility] (event) [facility] Tobacco use and 2022-08-13 2022-08-13 Smokeless tobacco Un iversity of exposure 00:00:00 00:00:00 non-user [facility] Social History 2018-08-27 2018-08-27 [facility] Lesia traore 09:20:36 09:20:36 Sex [birth year] At [birth year] Universit y of 00:00:00 00:00:00 [facility] Smoking Status Start Date Stop Date Source Never smoked tobacco [facility] Tobacco smoking consumption Univ ersity of [facility] unknown Branch Medications Ordered Filled Start Stop Current Ordering Indication Dosage Frequency Signature Comments Components Source Medication Medication Date Date Medication? Clinician (SIG) Name Name sulfamethox 2021-10- No [id number] 1{tbl} Take 1 Univers azole-trime 0-14 10-22 tablet by it y of 00:00: 04:59 mouth in [place] (BACTRIM 00 :00 the Medical DS) 800-160 morning Branc h mg per and 1 tablet tablet in the evening. Do all this for 7 days. atorvastati Yes 10mg Take 10 mg Univers n 10 mg 8-23 by mouth ity of tablet 00:00: at [place] 00 bedtime. Medical Branch levothyroxi 2022- No 88ug Take 88 Un gaetano ne 88 mcg 8-13 08-14 mcg by ity of tablet 00:00: 04:59 mouth. [place] 00 :00 Medical Branch montelukast Yes TAKE 1 Univ ers 10 mg 7-22 TABLET BY ity of tablet 00:00: MOUTH ONCE [place] 00 DAILY AT Medical NIGHT Branch Cholecalcif Yes 2000U Take 2,000 Univers amy, 4-20 Units by ity of Vitamin D3, 00:00: [place] 50 mcg 00 Medical (2,000 Branch unit) capsule benzonatate 2020- No 200mg 200 mg, U nivers (TESSALON 4-30 04-30 Oral, ONCE ity of PERLES) 06:45: 05:44 NOW, 1 [place] capsule 200 00 :00 dose, Fri Med ical mg 02/27/21 at Branch 0145, Routine albuterol Yes [id number] 2{puff} Inhale 2 Univers 90 4-30 Puffs ity of mcg/actuati 00:00: every 4 Rajan as on inhaler 00 (four) Medical hours as Branch needed for Wheezing or Shortness of Breath. benzonatate Yes [id number] 100mg Take 1 Univers 100 mg 4-30 capsule by ity of capsule 00:00: mouth 3 [place] 00 (three) Medical times Branch daily as needed for Cough. albuterol Yes [id number] 2{puff} Inhale 2 Univers 90 4-30 Puffs ity of mcg/actuati 00:00: every 4 Rajan as on inhaler 00 (four) Medical hours as Branch needed for Wheezing or Shortness of Breath. benzonatate Yes [id number] 100mg Take 1 Univers 100 mg 4-30 capsule by ity of capsule 00:00: mouth 3 [place] 00 (three) Medical times Branch daily as needed for Cough. albuterol Yes [id number] 2{puff} Inhale 2 Univers 90 4-30 Puffs ity of mcg/actuati 00:00: every 4 Rajan as on inhaler 00 (four) Medical hours as Branch needed for Wheezing or Shortness of Breath. benzonatate Yes [id number] 100mg Take 1 Univers 100 mg 4-30 capsule by ity of capsule 00:00: mouth 3 00 (three) Medical times Branch daily as needed for Cough. predniSONE 2020- No [id number] 20mg Take 1 Univers 20 mg 4-30 05-08 tablet by ity of tablet 00:00: 04:59 mouth [place] 00 :00 daily for Medical 7 days. Branch atorvastati Yes 0 Memori a n 10 mg 8-26 Refill(s) l oral tablet 20:26: Kirill n 00 levothyroxi 2019-0 Yes 0 Memori a ne 75 mcg 8-26 Refill(s) l (0.075 mg) 20:26: [place] oral tablet 00 montelukast 2019-0 Yes 0 Memori a 10 mg oral 8-26 Refill(s) l tablet 20:26: Chad 00 predniSONE 2019-0 Yes 0 Memoria 20 mg oral 8-26 Refill(s) l tablet 20:26: [place] atorvastati 2019-0 Yes 0 Memori a n 10 mg 8-26 Refill(s) l oral tablet 20:26: Kirill n 00 levothyroxi 2020-0 Yes 0 Memori a ne 75 mcg 8-26 Refill(s) l (0.075 mg) 20:26: [place] oral tablet 00 montelukast 2020-0 Yes 0 Memori a 10 mg oral 8-26 Refill(s) l tablet 20:26: [place] 00 predniSONE 2020-0 Yes 0 Memoria 20 mg oral 8-26 Refill(s) l tablet 20:26: Hcad 00 atorvastati 2019-0 Yes 0 Memori a n 10 mg 8-26 Refill(s) l oral tablet 20:26: Kirill n 00 levothyroxi 2020-0 Yes 0 Memori a ne 75 mcg 8-26 Refill(s) l (0.075 mg) 20:26: [place] oral tablet 00 montelukast 2019-0 Yes 0 Memori a 10 mg oral 8-26 Refill(s) l tablet 20:26: [place] 00 predniSONE 2019-0 Yes 0 Memoria 20 mg oral 8-26 Refill(s) l tablet 20:26: [place] atorvastati 2017-10 No Notes: Gerson cathy n 0-29 (Same As: l 02:00: Lipitor) atorvastati 2017-10 No Notes: Gerson cathy n 0-29 (Same As: l 02:00: Lipitor) atorvastati 2017-10 No Notes: Gerson cathy n 0-29 (Same As: l 02:00: Lipitor) albuterol 2017-10 No Notes: SEE Me moria 0-28 RT l 14:07: DOCUMENTAT ION (Same as: Proventil) albuterol 2017-10 No Notes: SEE Me moria 0-28 RT l 14:07: DOCUMENTAT ION (Same as: Proventil) albuterol 2017-10 No Notes: SEE Me moria 0-28 RT l 14:07: DOCUMENTAT ION (Same as: Proventil) montelukast 2017-10 No Notes: Gerson cathy 0-28 (Same l 14:00: as:Singula ir) Thyroxine 2017-10 No Notes: Memori a 0-28 Take 1 l 14:00: hour [place] 00 before or 2 hours after meal; Enteral feeds may interefere with the absorption of this medication . (Same as:Synthro id, Levothroid ) montelukast 2017-10 No Notes: Gerson cathy 0-28 (Same l 14:00: as:Singula Hcad 00 ir) Thyroxine 2017-10 No Notes: Memori a 0-28 Take 1 l 14:00: hour [place] 00 before or 2 hours after meal; Enteral feeds may interefere with the absorption of this medication . (Same as:Synthro id, Levothroid ) montelukast 2017-10 No Notes: Gerson cathy 0-28 (Same l 14:00: as:Singula Chad 00 ir) Thyroxine 2017-10 No Notes: Memori a 0-28 Take 1 l 14:00: hour [place] 00 before or 2 hours after meal; [...] ONCE Gerson cathy (ANES) 0-28 l 13:58: [place] 00 glycopyrrol 2017-10 No Route: IV, Memoria ate (ANES) 0-28 Drug form: l 13:58: INJ, ONCE, Stop date: 08/27/18 8:58:00 CDT dexamethaso 2017-10 No Route: IV, Memoria ne (ANES) 0-28 Drug form: l 13:58: INJ, ONCE, Stop date: 08/27/18 8:58:00 CDT ketOROLAC 2017-10 No IV, ONCE Gerson cathy (ANES) 0-28 l 13:58: Chad 00 glycopyrrol 2017-10 No Route: IV, Memoria ate [...] ONCE Gerson cathy (ANES) 0-28 l 13:58: Chad 00 glycopyrrol 2017-10 No Route: IV, Memoria ate [...] exceed l Codeine 13:57: 4gm/day of Herm 00 acetaminop 30 MG Oral hen. (Same Tablet as: [Tylenol Tylenol with with Codeine #3] Codeine # 3) Morphine 2017-10 No Notes: Memoria 0-28 Preservati l 13:57: ve free. [place] 00 (Same as: Morphine Sulfate-PF ) 200 ACTUAT 2017-10 No 180 Memoria Albuterol 0-28 microgram, l 0.09 13:57: 2 puff, Chad MG/ACTUAT 00 Route: Metered INHALER, Dose Drug Form: Inhaler AERO/A, [ProAir Dosing HFA] Weight 86.818, kg, Q4H, PRN Pain Score 1-3, Start date: 08/27/18 8:57:00 CDT, Duration: 30 day, Stop date: 09/26/18 8:56:00 EVENT MANAGEMENT CONSULTANT Acetaminoph 2017-10 No Notes: Do M emoria en 300 MG / 0-28 not exceed l Codeine 13:57: 4gm/day of Herm alf Phosphate 00 acetaminop 30 MG Oral hen. (Same Tablet as: [Tylenol Tylenol with with Codeine #3] Codeine # 3) Morphine 2017-10 No Notes: Memoria 0-28 Preservati l 13:57: ve free. [place] 00 (Same as: Morphine Sulfate-PF ) 200 ACTUAT 2017-10 No 180 Memoria Albuterol 0-28 microgram, l 0.09 13:57: 2 puff, Chad MG/ACTUAT 00 Route: Metered INHALER, Dose Drug Form: Inhaler AERO/A, [ProAir Dosing HFA] Weight 86.818, kg, Q4H, PRN Pain Score 1-3, Start date: 08/27/18 8:57:00 CDT, Duration: 30 day, Stop date: 09/26/18 8:56:00 EVENT MANAGEMENT CONSULTANT Acetaminoph 2017-10 No Notes: Do M emoria en 300 MG / 0-28 not exceed l Codeine 13:57: 4gm/day of Herm alf Phosphate 00 acetaminop 30 MG Oral hen. (Same Tablet as: [Tylenol Tylenol with with Codeine #3] Codeine # 3) Morphine 2017-10 No Notes: Memoria 0-28 Preservati l 13:57: ve free. [place] 00 (Same as: Morphine Sulfate-PF ) 200 ACTUAT 2017-10 No 180 Memoria Albuterol 0-28 microgram, l 0.09 13:57: 2 puff, [place] MG/ACTUAT 00 Route: Metered INHALER, Dose Drug Form: Inhaler AERO/A, [ProAir Dosing HFA] Weight 86.818, kg, Q4H, PRN Pain Score 1-3, Start date: 08/27/18 8:57:00 CDT, Duration: 30 day, Stop date: 09/26/18 8:56:00 EVENT MANAGEMENT CONSULTANT clindamycin 2017-10 No Route: IV, Memoria (ANES) 0-28 Drug form: l 13:45: INJ, ONCE, [place] 00 Stop date: 08/27/18 8:45:00 CDT clindamycin 2018 No Route: IV, Memoria (ANES) 0-28 Drug form: l 13:45: INJ, ONCE, Chad 00 Stop date: 08/27/18 8:45:00 CDT clindamycin 2017-10 No Route: IV, Memoria (ANES) 0-28 Drug form: l 13:45: INJ, ONCE, [place] 00 Stop date: 08/27/18 8:45:00 CDT rocuronium 2018 No Route: IV, M emoria (ANES) 0-28 Drug form: l 13:40: INJ, ONCE, [place] 00 Stop date: 08/27/18 8:40:00 CDT propofol 2018 No Route: IV, Mem oria (ANES) 0-28 Drug form: l 13:40: INJ, ONCE, [place] 00 Stop date: 08/27/18 8:40:00 CDT fentaNYL 2018 No Route: IV, Mem oria (ANES) 0-28 Drug form: l 13:40: INJ, ONCE, Chad 00 Stop date: 08/27/18 8:40:00 CDT rocuronium 2018 No Route: IV, M emoria (ANES) 0-28 Drug form: l 13:40: INJ, ONCE, Chad 00 Stop date: 08/27/18 8:40:00 CDT propofol 2018 No Route: IV, Mem oria (ANES) 0-28 Drug form: l 13:40: INJ, ONCE, [place] 00 Stop date: 08/27/18 8:40:00 CDT fentaNYL 2018 No Route: IV, Mem oria (ANES) 0-28 Drug form: l 13:40: INJ, ONCE, Chad 00 Stop date: 08/27/18 8:40:00 CDT rocuronium 2017-10 No Route: IV, Татьяна emoria (ANES) 0-28 Drug form: l 13:40: INJ, ONCE, [place] 00 Stop date: 08/27/18 8:40:00 CDT propofol 2017-10 No Route: IV, Mem oria (ANES) 0-28 Drug form: l 13:40: INJ, ONCE, [place] 00 Stop date: 08/27/18 8:40:00 CDT fentaNYL 2017-10 No Route: IV, Mem oria (ANES) 0-28 Drug form: l 13:40: INJ, ONCE, Stop date: 08/27/18 8:40:00 CDT midazolam 2017-10 No Route: IV, Me moria (ANES) 0-28 Drug form: l 13:35: SOLN, Chad ONCE, Stop date: 08/27/18 8:35:00 CDT lidocaine 2017-10 No Route: IV, Me moria (ANES) 0-28 Drug form: l 13:35: INJ, ONCE, [place] 00 Stop date: 08/27/18 8:35:00 CDT midazolam 2017-10 No Route: IV, Me moria (ANES) 0-28 Drug form: l 13:35: SOLN, Chad ONCE, Stop date: 08/27/18 8:35:00 CDT lidocaine 2017-10 No Route: IV, Me moria (ANES) 0-28 Drug form: l 13:35: INJ, ONCE, Chad Stop date: 08/27/18 8:35:00 CDT midazolam 2017-10 No Route: IV, Me moria (ANES) 0-28 Drug form: l 13:35: SOLN, [place] 00 ONCE, Stop date: 08/27/18 8:35:00 CDT [...] Ringers 0-28 Total l Injection 12:53: Volume: Luica nn IV (ANES) 00 1,000, 1000 mL [...] Memoria 0-28 Daily, 0 l 09:24: Refill(s) [place] 00 atorvastati 2017-10 Yes 10 mg, PO, Memoria n 0-28 Bedtime, 0 l 09:24: Refill(s) Thyroxine 2017-10 Yes 75 Memoria 0-28 microgram, l 09:24: PO, Daily, Chad 00 0 Refill(s) 200 ACTUAT 2017-10 Yes 2 puff, Gerson cathy Albuterol 0-28 INHALER, l 0.09 09:24: Q4H, PRN Chad MG/ACTUAT 00 wheezing, Metered coughing, Dose or Inhaler shortness [ProAir of breath, HFA] # 1 ea, 1 Refill(s) montelukast 2017-10 Yes 10 mg, PO, Memoria 0-28 Daily, 0 l 09:24: Refill(s) atorvastati 2017-10 Yes 10 mg, PO, Memoria n 0-28 Bedtime, 0 l 09:24: Refill(s) Thyroxine 2017-10 Yes 75 Memoria 0-28 microgram, l 09:24: PO, Daily, [place] 00 0 Refill(s) 200 ACTUAT 2017-10 Yes 2 puff, Gerson cathy Albuterol 0-28 INHALER, l 0.09 09:24: Q4H, PRN [place] MG/ACTUAT 00 wheezing, Metered coughing, Dose or Inhaler shortness [ProAir of breath, HFA] # 1 ea, 1 Refill(s) montelukast 2017-10 Yes 10 mg, PO, Memoria 0-28 Daily, 0 l 09:24: Refill(s) atorvastati 2017-10 Yes 10 mg, PO, Memoria n 0-28 Bedtime, 0 l 09:24: Refill(s) Thyroxine 2017-10 Yes 75 Memoria 0-28 microgram, l 09:24: PO, Daily, Chad 00 0 Refill(s) atorvastati atorvastati No atorvastat [place] [...] TABLET IN THE EVENING FOR 7 DAYS atorvastati atorvastati No atorvastat [place] 10 mg n 10 mg in 10 mg da tablet TAKE tablet TAKE tablet Medical 1 TABLET BY 1 TABLET BY TAKE 1 Group MOUTH AT MOUTH AT TABLET BY BEDTIME BEDTIME MOUTH AT BEDTIME ibuprofen ibuprofen No ibuprofen [place] 800 mg 800 mg 800 mg da tablet TAKE tablet TAKE tablet Medical 1 TABLET BY 1 TABLET BY TAKE 1 Group MOUTH EVERY MOUTH EVERY TABLET BY 8 HOURS 8 HOURS MOUTH NEEDED FOR NEEDED FOR EVERY 8 PAIN WITH PAIN WITH HOURS FOOD FOOD NEEDED FOR PAIN WITH FOOD levothyroxi levothyroxi No levothyrox [place] 88 [...] MOUTH ONCE NIGHT NIGHT DAILY AT NIGHT nitrofurant nitrofurant No nitrofuran [place] oin toin da monohydrate monohydrate monohydrat Medical /macrocryst /macrocryst e/macrocry Group als 100 mg als 100 mg stals 100 capsule capsule mg capsule TAKE 1 TAKE 1 TAKE 1 CAPSULE BY CAPSULE BY CAPSULE BY MOUTH EVERY MOUTH EVERY MOUTH 12 HOURS 12 HOURS EVERY 12 FOR 7 DAYS FOR 7 DAYS HOURS FOR 7 DAYS ondansetron ondansetron No ondansetro [place] HCl 4 mg HCl 4 mg n HCl 4 mg d a tablet TAKE tablet TAKE tablet Medical 1 TABLET BY 1 TABLET BY TAKE 1 Group MOUTH EVERY MOUTH EVERY TABLET BY 12 HOURS 12 HOURS MOUTH NEEDED NEEDED EVERY 12 HOURS NEEDED oseltamivir oseltamivir No oseltamivi [place] 75 mg 75 mg r 75 mg da capsule capsule capsule Medica l TAKE 1 TAKE 1 TAKE 1 Group CAPSULE BY CAPSULE BY CAPSULE BY MOUTH EVERY MOUTH EVERY MOUTH 12 HOURS 12 HOURS EVERY 12 FOR 5 DAYS FOR 5 DAYS HOURS FOR FOR FLU FOR FLU 5 DAYS FOR FLU sulfamethox sulfamethox No sulfametho [place] azole 800 [...] TABLET IN THE EVENING FOR 7 DAYS tramadol 50 tramadol 50 No tramadol [place] mg tablet mg tablet 50 mg da TAKE 1 TAKE 1 tablet Medical TABLET BY TABLET BY TAKE 1 Marshal up MOUTH EVERY MOUTH EVERY TABLET BY 6 HOURS 6 HOURS MOUTH NEEDED FOR NEEDED FOR EVERY 6 PAIN PAIN HOURS NEEDED FOR PAIN Vital Signs Vital Name Observation Time Observation Value Comments Source BP Diastolic 2022-09-13 00:00:00 76 mm[Hg] [facility] Height 2022-09-13 00:00:00 62 [in_i] [facility] BMI (Body Mass 2022-09-13 00:00:00 33.1 kg/m2 [facility] Medical Index) Group BP Systolic 2022-09-13 00:00:00 132 mm[Hg] [facility] Body Weight 2022-09-13 00:00:00 181 [lb_av] [facility] BP Diastolic 2022-08-23 00:00:00 87 mm[Hg] [facility] Height 2022-08-23 00:00:00 62 [in_i] [facility] BMI (Body Mass 2022-08-23 00:00:00 33.1 kg/m2 [place] [facility] Medical Index) Group BP Systolic 2022-08-23 00:00:00 133 mm[Hg] [place] [facility] Body Weight 2022-08-23 00:00:00 181 [lb_av] [place] [facility] Systolic blood 2022-08-13 23:02:00 121 mm[Hg] Univer sity of pressure [facility] Diastolic blood 2022-08-13 23:02:00 79 mm[Hg] Unive rsity of pressure [place] [facility] Heart rate 2022-08-13 23:02:00 86 /min [facility] [place] [facility] Body temperature 2022-08-13 23:02:00 37.11 Terri Univ ersity [facility] [place] [facility] Respiratory rate 2022-08-13 23:02:00 18 /min Univ [facility] [place] [facility] Body height 2022-08-13 23:02:00 157.5 cm [facility] [place] [facility] Body weight 2022-08-13 23:02:00 81.761 kg [facility] [place] [facility] BMI 2022-08-13 23:02:00 32.97 kg/m2 [facility] [place] [facility] Oxygen saturation in 2022-08-13 23:02:00 97 /min [facility] Pulse oxim[facility] Branch Systolic blood 2021-02-27 07:01:48 133 mm[Hg] Univer sity of pressure [place] [facility] Diastolic blood 2021-02-27 07:01:48 85 mm[Hg] Unive rsity of pressure [place] [facility] Heart rate 2021-02-27 07:01:48 76 /min [facility] [place] [facility] Respiratory rate 2021-02-27 07:01:48 19 /min Univ [facility] [place] [facility] Oxygen saturation in 2021-02-27 07:01:48 98 /min [facility] Pulse oxim[facility] Body temperature 2021-02-27 02:47:00 37.28 Terri [facility] [place] [facility] Body height 2021-02-27 02:47:00 157.5 cm [facility] [place] [facility] Body weight 2021-02-27 02:47:00 86.637 kg [facility] [place] [facility] BMI 2021-02-27 02:47:00 34.93 kg/m2 [facility] [place] [facility] Systolic (mm Hg) 2020-09-02 20:31:00 Gerson rial [place] Diastolic (mm Hg) 2020-09-02 20:31:00 Mem orial [place] Heart Rate 2020-09-02 20:31:00 [facility] [place] Respitory Rate 2020-09-02 20:31:00 Memori al [place] Height 2020-09-02 20:31:00 157.48 cm [facility] [place] Weight 2020-09-02 20:31:00 [facility] [place] BMI Calculated 2020-09-02 20:31:00 Memori al [place] Systolic (mm Hg) 2020-08-01 20:24:00 Gerson rial [place] Diastolic (mm Hg) 2020-08-01 20:24:00 Mem orial [place] Heart Rate 2020-08-01 20:24:00 [facility] [place] Respitory Rate 2020-08-01 20:24:00 Memori al [place] Height 2020-08-01 20:24:00 157.48 cm [facility] [place] Weight 2020-08-01 20:24:00 [facility] [place] BMI Calculated 2020-08-01 20:24:00 Memori al [place] Systolic (mm Hg) 2020-06-25 20:18:00 Gerson rial [place] Diastolic (mm Hg) 2020-06-25 20:18:00 Mem orial [place] Heart Rate 2020-06-25 20:18:00 [facility] [place] Respitory Rate 2020-06-25 20:18:00 Memori al [place] Height 2020-06-25 20:18:00 157.48 cm [facility] [place] Weight 2020-06-25 20:18:00 [facility] [place] BMI Calculated 2020-06-25 20:18:00 Memori al [place] Systolic (mm Hg) 2018-08-27 21:00:00 Gerson rial [place] Diastolic (mm Hg) 2018-08-27 21:00:00 Mem orial [place] Respitory Rate 2018-08-27 21:00:00 Memori al [place] Heart Rate 2018-08-27 21:00:00 [facility] [place] Temperature Oral (F) 2018-08-27 21:00:00 98.4 F [facility] [place] Heart Rate 2018-08-27 17:00:00 [facility] [place] Temperature Oral (F) 2018-08-27 17:00:00 98.1 F [facility] [place] Systolic (mm Hg) 2018-08-27 17:00:00 Gerson rial [place] Diastolic (mm Hg) 2018-08-27 17:00:00 Mem orial [place] Respitory Rate 2018-08-27 17:00:00 Memori al [place] Systolic (mm Hg) 2018-08-27 15:35:00 Gerson rial [place] Diastolic (mm Hg) 2018-08-27 15:35:00 Mem orial [place] Respitory Rate 2018-08-27 15:35:00 Memori al [place] Temperature Oral (F) 2018-08-27 11:41:00 98.9 F [facility] [place] Heart Rate 2018-08-27 11:41:00 [facility] [place] BMI Calculated 2018-08-27 09:22:00 Memori al [place] Height 2018-08-27 09:22:00 157.48 cm [facility] [place] Weight 2018-08-27 09:22:00 [facility] [place] Procedures Procedure Date / Time Performing Clinician Source Performed ASSIGNMENT OF BENEFITS 2022-08-13 22:52:32 Doctor Unassigned, [facility] XR CHEST 1 VW 2021-02-27 05:53:31 Adrianna Pablo [facility] Medical Branch COVID-19 (ID NOW RAPID 2021-02-27 05:45:00 Adrianna Pablo [facility] TESTING) Medical Branch NOTICE OF PRIVACY 2021-02-27 02:35:47 Doctor Ana, [facility] PRACTICES [facility] CONSENT/REFUSAL FOR 2021-02-27 02:35:09 Doctor Unassnathan, [facility] DIAGNOSIS AND TREATMENT [facility] Other 2010-03-02 00:00:00 [place] [facility] Cholecyst[facility] [place] Excision of cyst of breast Memor [facility] [place] [facility] Plan of Care Planned Activity Planned Date Details Comments Source Instructions [facility] Encounters Start End Encounter Admission Attending Care Care Encounter Source Date/Time Date/Time Type Type Clinicians Facility Department ID 2022-09-14 2022-09-14 Outpatient [id number] [place] 00:00:00 00:00:00 [facility] 2022-09-14 2022-09-14 Outpatient [facility]J [id number] [place] 00:00:00 00:00:00 [id number] 2022-09-13 2022-09-13 Outpatient Young_J [facility] [id number] [place] 00:00:00 00:00:00 [id number] [facility] 2022-09-13 2022-09-13 Ambrosio [facility] [place] - [id number] atagor 00:00:00 00:00:00 Gucci, DO: d a 600 [facility] [place] - [address], [place] [address] , Ph. [phone] 2022-09-10 2022-09-10 Outpatient Young_J MMG MMG [id number] [place] 00:00:00 00:00:00 1111 [facility] 2022-09-07 2022-09-07 Outpatient Young_J MMG MMG [id number] [place] 00:00:00 00:00:00 1108 [facility] 2022-08-27 2022-08-27 Outpatient SERENE VARGAS [facility] [id number] [place] 06:19:00 06:19:00 AMBROSIO [id number] [facility] 2022-08-23 2022-08-23 [place] [id number] [place] 00:00:00 00:00:00 1024 [facility] 2022-08-23 2022-08-23 Ambrosio [facility] [place] - [id number] at[place]or 00:00:00 00:00:00 Gucci, DO: d a [address] [facility] [address], [place] [address] , Ph. [phone] 2022-08-20 2022-08-20 Outpatient Young_J MMG MMG [id number] [place] 00:00:00 00:00:00 1021 [facility] 2022-08-13 2022-08-13 Outpatient Keiry WOODALL [facility] [id number] Univers 18:00:00 18:18:02 MOLLY ity o f [facility] 2022-08-13 2022-08-13 Urgent Ankur, Molly [facility] [id number] Univers 18:00:00 18:18:02 Care Unknown, Attending [facility] [id number] ity of [place] [id number] Rajan as LEX?BLEA [id number] [address] MEDICAL OFFICE BUILDING 2022-08-13 2022-08-13 Outpatient R UNKNOWN, [facility] [id number] Univers 18:00:00 18:00:00 ATTENDING [facility] 2022-08-13 2022-08-13 Outpatient R UNKNOWN, [facility] [id number] Univers 18:00:00 18:00:00 ATTENDING [facility] 2022-08-13 2022-08-13 Orders Doctor RONAL [id number] Univers 00:00:00 00:00:00 Only Unassigned, CHRISTIANO [id number] ity of [place] [facility] [id number] Rajan as [id number] [facility] [address] 2021-02-26 2021-02-27 Emergency [facility] [id number] Univers 21:51:00 02:05:00 Adrianna Velasquez [id number] ity of [id number] [id number] [facility] [address] 2021-02-26 2021-02-27 Emergency X [facility] ERT [id number] Univers 21:51:00 02:05:00 ADRIANNA itadelfo [facility] 2020-12-30 2020-12-30 Ambulatory nullFlavo MNA [id number] Memoria 20:30:00 20:30:00 Pre-Reg r Neurology 04 l Radha Bonilla 2020-12-30 2020-12-30 Ambulatory nullFlavo MNA [id number] Memoria 20:30:00 20:30:00 Pre-Reg r Neurology 04 l Radha Bonilla 2020-12-30 2020-12-30 Outpatient MHIE MHIE [id number] Memoria 14:30:00 14:30:00 04 l [place] 2020-12-30 2020-12-30 [id number] 14:30:00 14:30:00 Radu 04 Lauri 2020-09-02 2020-09-03 Outpatient nullFlavo MNA [id number] Memoria 20:30:00 05:59:59 r Neurology 03 l [place] 2020-09-02 2020-09-03 Outpatient nullFlavo MNA [id number] Memoria 20:30:00 05:59:59 r Neurology 03 l [place] 2020-09-02 2020-09-02 [facility] [id number] 14:30:00 23:59:59 Radu Lauri 2020-09-02 2020-09-02 Outpatient MHIE MHIE [id number] Memoria 14:30:00 14:30:00 03 pipe Chad 2020-08-05 2020-08-06 Outpatient nullFlavo MNA [id number] Memoria 19:00:00 04:59:59 r Neurology 02 l [place] 2020-08-05 2020-08-06 Outpatient nullFlavo MNA [id number] Memoria 19:00:00 04:59:59 r Neurology 02 l [place] 2020-08-05 2020-08-05 [facility] [id number] 14:00:00 23:59:59 Radu Lauri 2020-08-05 2020-08-05 Outpatient MHIE MHIE [id number] Memoria 14:00:00 14:00:00 02 l [place] 2020-08-01 2020-08-02 Outpatient nullFlavo MNA [id number] Memoria 20:30:00 04:59:59 r Neurology 01 l [place] 2020-08-01 2020-08-02 Outpatient nullFlavo MNA [id number] Memoria 20:30:00 04:59:59 r Neurology 01 l [place] 2020-08-01 2020-08-01 [facility] [id number] 15:30:00 23:59:59 Radu [facility] 2020-08-01 2020-08-01 Outpatient MHIE MHIE [id number] Memoria 15:30:00 15:30:00 01 [facility] 2020-06-25 2020-06-26 Outpatient nullFlavo MNA [id number] Memoria 20:15:00 04:59:59 r Neurology 00 l [facility] 2020-06-25 2020-06-26 Outpatient nullFlavo MNA [id number] Memoria 20:15:00 04:59:59 r Neurology 00 l [facility] 2020-06-25 2020-06-25 Outpatient Kane, MISCHER MISCHER [id number] 15:15:00 23:59:59 Radu 00 [facility] 2020-06-25 2020-06-25 Outpatient MHIE MHIE [id number] Memoria 15:15:00 15:15:00 00 [facility] 2018-08-27 2018-08-27 Bedded nullFlavo [facility] [id number] Memoria 20:07:00 22:00:00 Outpatient r [place] 01 [facility] 2018-08-27 2018-08-27 Bedded nullFlavo [facility] [id number] Memoria 20:07:00 22:00:00 Outpatient r [place] 01 [facility] 2018-08-27 2018-08-27 Outpatient Ekhaese, MHPL MHPL [id number] 15:07:00 17:00:00 [place] 01 [place] 2017-01-30 2017-01-30 Outpatient Young_J MMG MMG [id number] [place] 00:00:00 00:00:00 0402 [facility] Results Test Description Test Time Test Comments Results Result Comments Source COVID-19 (ID NOW RAPID TESTING) 2021-02-27 06:08:44 Test Item Value Reference Range Interpretation Comme nts SARS-CoV-2 Rapid ID NOW (test code Not Detected Not Detected = 27580-6) ABHINAV (test code = ABHINAV) ID NOW COVID-19 Assay is an isothermal nucleic acid amplification test intended for the qualitative detection of nucleic acid from SARS-CoV-2 viral RNA in nasopharyngeal (ASSOCIATE PROFESSOR OF GEOLOGY) specimens. It is used under Emergency Use [...] indicated. Lab Interpretation (test code = Normal 66478-6) [facility]
[2023-09-14] MEDS ORDERED: TDAP (DIPHTH,PERTUSS(ACELL),TET VAC) 0.5 ML VIAL IMVAC ONE (08:32)
[2023-09-14] MEDS ORDERED: LIDOCAINE 1% MPF 5 ML VIAL ONE (08:32)
[2023-09-14] MEDS ORDERED: HYDROCODONE/APAP 5/325 MG TAB ONE (08:32)
--- NOTE | 2023-09-14 09:41 | EDPHYS ---
Physician Documentation [facility] Name: Deuce Fuller Age: 38 yrs Sex: Female : 1985 Arrival Date: 09/14/2023 Time: 07:55 Bed 13 Private MD: ED Physician Nathanael Moreno HPI: 09/14 08:14 This 38 yrs old Female presents to ER via Ambulatory with complaints of Laceration To kb Hand - Finger. 08:14 Patient is a 38-year-old female who presents for laceration to right second digit. kb States she was going to the dog for a walk and he pulled her down the last step of the RV steps. States she hit her finger on the steps causing laceration.. Historical: - Allergies: 08:10 Amoxicillin; ll1 08:10 PENICILLINS; ll1 - PMHx: 08:10 Hypercholesterolemia; Hypothyroidism; ll1 - PSHx: 08:10 Appendectomy; Cholecystectomy; scar tissure removed from left breast; ll1 - Immunization history:: Adult Immunizations up to date. - Social history:: Smoking status: Patient denies any tobacco usage or history of. ROS: 08:16 Constitutional: Negative for fever, chills, and weight loss, kb 08:16 Skin: Positive for laceration(s), of the Right index finger, 08:16 All other systems are negative, Exam: 08:15 Constitutional: This is a well developed, well nourished patient who is awake, alert, kb and in no acute distress. Head/Face: Normocephalic, atraumatic. ENT: Moist Mucous membranes Cardiovascular: Regular rate Respiratory: Respirations even and unlabored. No increased work of breathing. Talking in full sentences MS/ Extremity: Pulses equal, no cyanosis. Neurovascular intact. Full, normal range of motion. Neuro: Awake and alert, GCS 15, oriented to person, place, time, and situation. Moves all extremities. Normal gait. 08:15 Skin: injury, abrasion(s), small abrasion noted, of the right knee and left knee, laceration(s), the wound is approximately 2.5 cm(s), of the Right index finger, that can be described as clean, no foreign body, irregular, without bleeding, Vital Signs: 08:11 BP 141 / 92; Pulse 85; Resp 16; Temp 98.4; Pulse Ox 100% ; Weight 87.54 kg; Height 5 ll1 ft. 2 in. ; Pain 9/10; 09:00 BP 138 / 94; Pulse 87; Resp 18; Pulse Ox 100% on R/A; eh3 10:00 BP 129 / 90; Pulse 91; Resp 18; Pulse Ox 99% on R/A; eh3 08:11 Body Mass Index 35.30 (87.54 kg, 157.48 cm) ll1 08:11 Pain Scale: Adult ll1 Procedures: 09:07 Nerve block: (digital) of Right index finger Medication: Lidocaine 1% without kb epinephrine Marcaine 0.5%, Amount: 4 mls were injected, Effect: the patient has resolution of the pain, Set up for procedure. Performed by Jessica NAVAS Patient tolerated well. Laceration: 09:39 Wound Repair of 2.5cm ( 1.0in ) subcutaneous laceration to Right index finger. kb Irregularly shaped.. Skin/tissue flap noted.. Distal neuro/vascular/tendon intact. Anesthesia: Digital block administered with 1% lidocaine. Wound prep: Extensive cleansing with hibiclenz by me, Wound irrigation with saline by ar. Skin closed with 6 5-0 Prolene using simple sutures and sterile technique. Patient tolerated well. MDM: 08:02 Patient medically screened. kb 08:16 Differential diagnosis: superficial laceration, tendon injury, vascular injury. Data kb reviewed: vital signs, nurses notes. 09:40 Counseling: I had a detailed discussion with the patient and/or guardian regarding the kb historical points, exam findings, and any diagnostic results supporting the discharge/admit diagnosis, the need for outpatient follow up, a family practitioner, to return to the emergency department if symptoms worsen or persist or if there are any questions or concerns that arise at home. 09/14 08:09 Order name: Dressing - Wound; Complete Time: 09:11 kb 09/14 08:09 Order name: Gloves, Sterile; Complete Time: 09:11 kb 09/14 08:09 Order name: Prolene, Sutures; Complete Time: 09:11 kb 09/14 08:09 Order name: Setup Suture Tray; Complete Time: 09:11 kb 09/14 09:40 Order name: Finger Splint; Complete Time: 10:26 kb Administered Medications: 08:23 Drug: HYDROcodone-acetaminophen PO 5 mg-325 mg 1 tabs PO once Route: PO; ll1 09:25 Follow up: Response: No adverse reaction; Pain is decreased; RASS: Alert and Calm (0) eh3 08:24 Drug: Tetanus-Diphtheria Toxoid IM Adult 0.5 ml IM once; Provide Vaccine Information ll1 Statement (VIS). {Rn Medical Surgical: [employer]; Exp: Sat Mar 23 2025; Lot #: [id number]; Series: 1 of 1; Patient Consent: Obtained; Date/Time: ; Source Name: Deuce Fuller; Source Relationship: Self; Address Information: [address] [place] [address]; ; Education: Provided; VIS Presented Date: ; VIS Publication: Tetanus/Diphtheria (Td) Vaccine VIS 02/08/2017 (historic)} Route: IM; Site: right deltoid; 09:26 Follow up: Response: (VIS) Vaccine information sheet provided today. Questions and/or eh3 concerns addressed. VIS edition date: Jun 05, 2021.; No adverse reaction 09:00 Drug: Bupivacaine Infiltration (0.5 %) 1 vials 10 ml Infiltration once {Note: eh3 administered by MK Rangel} Volume: 10 ml; Route: Infiltration; 09:25 Follow up: Response: No adverse reaction; Pain is decreased eh3 09:00 Drug: Lidocaine Infiltration (1 %) 1 vials 5 ml Infiltration once; to bedside {Note: eh3 administered by MK Rangel} Volume: 5 ml; Route: Infiltration; 09:25 Follow up: Response: No adverse reaction; Pain is decreased eh3 Disposition Summary: 09/14/23 09:40 Discharge Ordered Condition: Stable kb Diagnosis - Laceration without foreign body of right index finger without damage to nail kb Followup: kb - With: Emergency Department - When: As needed - Reason: Worsening of condition Followup: kb - With: Private Physician - When: 2 - 3 days - Reason: Recheck today's complaints, Continuance of care, Re-evaluation by your physician Discharge Instructions: - Discharge Summary Sheet kb - Laceration Care, Adult, [id number] kb Forms: - Medication Reconciliation Form kb - Thank You Letter kb - Antibiotic Education kb - Prescription Opioid Use kb - Patient Portal Instructions kb - Leadership Thank You Letter kb Addendum: 09/16/2023 20:15 I was immediately available for consultation during this patient's visit. I did not e c2 personally see the patient or guide the patient's care.. Signatures: Jessica Parson, MAIL HANDLER-C MAIL HANDLER-Kezia Dawson RN RN ll1 Cassidy Cortez RN RN eh3 Nathanael Moreno MD MD ec2 Corrections: (The following items were deleted from the chart) 09/14 09:07 08:14 Patient is a 38-year-old female who presents for laceration to right fourth kb digit. States she was going to the dog for a walk and he pulled her down the last step of the RV steps. States she hit her finger on the steps causing laceration.. kb 09:07 08:16 Skin: Positive for laceration(s), of the right ring finger, kb kb 09:08 08:15 Skin: injury, abrasion(s), small abrasion noted, of the right knee and left knee, kb laceration(s), the wound is approximately 2.5 cm(s), of the right ring finger, that can be described as clean, no foreign body, irregular, without bleeding, kb
--- NOTE | 2023-09-14 09:41 | ER ---
Nurse's Notes [facility] Name: Deuce Fuller Age: 38 yrs Sex: Female : 1985 Arrival Date: 09/14/2023 Time: 07:55 Bed 13 Private MD: Diagnosis: Laceration without foreign body of right index finger without damage to nail Presentation: 09/14 08:11 Chief complaint: Patient states: Tripped while walking the dog. Fell down 1 RV step. ll1 Abrasions to both knees. Laceration R hand 2nd digit, bleeding controlled with pressure. No head injury or LOC. Coronavirus screen: Client denies travel out of the [place] in the last 14 days. At this time, the client does not indicate any symptoms associated with coronavirus-19. Ebola Screen: Patient denies travel to an Ebola-affected area in the 21 days before illness onset. Complicating Factors: There are no complicating factors for this patient. Initial Sepsis Screen: Does the patient meet any 2 criteria? No. Patient's initial sepsis screen is negative. Does the patient have a suspected source of infection? Yes: Skin breakdown/wound. Risk Assessment: Do you want to hurt yourself or someone else? Patient reports no desire to harm self or others. Onset of symptoms was September 14, 2023. 08:11 Method Of Arrival: Ambulatory ll1 08:11 Acuity: RAUL 4 ll1 Triage Assessment: 08:10 General: Appears uncomfortable, Behavior is calm, cooperative, appropriate for age. ll1 Pain: Complains of pain in right hand Quality of pain is described as aching, throbbing. Derm: Reports abrasions B knees. Musculoskeletal: Circulation, motion, and sensation intact. Capillary refill < 3 seconds. Injury Description: Laceration sustained to right hand is jagged, 0.5 to 2.5 cm long, not bleeding, was sustained less than 30 minutes ago. Historical: - Allergies: 08:10 Amoxicillin; ll1 08:10 PENICILLINS; ll1 - PMHx: 08:10 Hypercholesterolemia; Hypothyroidism; ll1 - PSHx: 08:10 Appendectomy; Cholecystectomy; scar tissure removed from left breast; ll1 Historical Immunization: - Administered Vaccines 09:00 Bupivacaine Infiltration (0.5 %) 1 vials eh3 09:00 Lidocaine Infiltration (1 %) 1 vials eh3 08:24 Tetanus-Diphtheria Toxoid IM Adult 0.5 ml ll1 Bunch Maker [employer]: [employer]; Exp: Sat Mar 23 2025; Lot #: [id number]; Series: 1 of 1; Patient Consent: Obtained; Date/Time: ; Source Name: Deuce Fuller; Source Relationship: Self; Address Information: [address] [place] [address]; ; Education: Provided; VIS Presented Date: ; VIS Publication: Tetanus/Diphtheria (Td) Vaccine VIS 02/08/2017 (historic) 08:23 HYDROcodone-acetaminophen PO 5 mg-325 mg 1 tabs ll1 - Immunization history:: Adult Immunizations up to date. - Social history:: Smoking status: Patient denies any tobacco usage or history of. Vital Signs: 08:11 BP 141 / 92; Pulse 85; Resp 16; Temp 98.4; Pulse Ox 100% ; Weight 87.54 kg; Height 5 ll1 ft. 2 in. ; Pain 9/10; 09:00 BP 138 / 94; Pulse 87; Resp 18; Pulse Ox 100% on R/A; eh3 10:00 BP 129 / 90; Pulse 91; Resp 18; Pulse Ox 99% on R/A; eh3 08:11 Body Mass Index 35.30 (87.54 kg, 157.48 cm) ll1 08:11 Pain Scale: Adult ll1 ED Course: 07:59 Patient arrived in ED. mg5 08:02 Jessica Parson FNP-C is PHCP. kb 08:02 Nathanael Moreno MD is Attending Physician. kb 08:10 Kezia Patricia RN is Primary Nurse. ll1 08:10 Arm band placed on Patient placed in an exam room, on a stretcher. ll1 08:13 Triage completed. ll1 10:26 Dressings: non-adherent dressing x 1 right ring finger. Aluminum finger splint applied eh3 to right ring finger. Administered Medications: 08:23 Drug: HYDROcodone-acetaminophen PO 5 mg-325 mg 1 tabs PO once Route: PO; ll1 09:25 Follow up: Response: No adverse reaction; Pain is decreased; RASS: Alert and Calm (0) 3 08:24 Drug: Tetanus-Diphtheria Toxoid IM Adult 0.5 ml IM once; Provide Vaccine Information ll1 Statement (VIS). {Bunch Maker Hand: [employer]; Exp: Sat Mar 23 2025; Lot #: [id number]; Series: 1 of 1; Patient Consent: Obtained; Date/Time: ; Source Name: Deuce Fuller; Source Relationship: Self; Address Information: [address] [place] [address]; ; Education: Provided; VIS Presented Date: ; VIS Publication: Tetanus/Diphtheria (Td) Vaccine VIS 02/08/2017 (historic)} Route: IM; Site: right deltoid; 09:26 Follow up: Response: (VIS) Vaccine information sheet provided today. Questions and/or 3 concerns addressed. VIS edition date: Jun 05, 2021.; No adverse reaction 09:00 Drug: Bupivacaine Infiltration (0.5 %) 1 vials 10 ml Infiltration once {Note: eh3 administered by ELOISE Rangel.} Volume: 10 ml; Route: Infiltration; 09:25 Follow up: Response: No adverse reaction; Pain is decreased 3 09:00 Drug: Lidocaine Infiltration (1 %) 1 vials 5 ml Infiltration once; to bedside {Note: eh3 administered by ELOISE Rangel.} Volume: 5 ml; Route: Infiltration; 09:25 Follow up: Response: No adverse reaction; Pain is decreased 3 Outcome: 09:40 Discharge ordered by MD. fisher 10:27 Patient left the ED. 3 Signatures: Jessica Parson FNP-C FNP-Ckb Lewis, Lynsay, RN RN 1 Cassidy Cortez RN RN 3 Susan Echavarria mg5 Corrections: (The following items were deleted from the chart) 09:07 08:11 Chief complaint: Patient states: Tripped while walking the dog. Fell down 1 RV ll1 step. Abrasions to both knees. Laceration R hand 4th digit, bleeding controlled with pressure. No head injury or LOC ll1 09:09 08:10 Injury Description: Laceration sustained to right hand ll1 ll1
[2023-09-14 10:31] VITALS: BP 141/92; TEMP 98.4; O2SAT 100
== END 2023-09-14 10:27 | disposition home or self-care (01) ==
LOC: ER 07:55
PROC: 0HQFXZZ Repair Right Hand Skin, External Approach (ICD-10-PCS; principal; 2023-09-14)
DX: S61.210A Laceration without foreign body of right index finger without damage to nail, initial encounter (principal); S80.212A Abrasion, left knee, initial encounter; S80.211A Abrasion, right knee, initial encounter; Z23 Encounter for immunization; Z88.0 Allergy status to penicillin; Z88.1 Allergy status to other antibiotic agents
CPT/HCPCS: 90471; 64450; 99284; 12001; J2001

== ENCOUNTER 2023-09-27 16:24 | Emergency (ER) | payer OTHER ==
--- OUTSIDE RECORDS SUMMARY | 2023-09-27 16:29 | XMS REPORT | Continuity of Care Document ---
:1985 Author Organization [facility] t Address [address] [facility] [facility] [address] [place] [address] Care Team Providers Name Role Phone SU PARRA Primary Care Physician Unavailable Brian Attending Clinician Unavailable AMBROSIO VARGAS Attending Clinician Unavailable MOLLY WOODALL Attending Clinician Unavailable Molly Gifford Attending Clinician Unknown, Attending Attending Clinician Unavailable UNKNOWN, ATTENDING Attending Clinician Unavailable Doctor Unassigned, [place] Attending Clinician Unavailable Adrianna Carmichael NP Attending Clinician ADRIANNA CARMICHAEL Attending Clinician Unavailable Radu Middleton Attending Clinician Marcelo Michaels Attending Clinician [phone] Brian Admitting Clinician Unavailable ADRIANNA CARMICHAEL Admitting Clinician Unavailable Marcelo Michaels Admitting Clinician Payers Payer Name Policy Type Policy Number Effective Date Expiration Date Gina jiangwilliam [employer] - [id number] 2020 [employer] 00:00:00 (MEDICARE REPLACEMENT/ADVANTA GE - HMO) [facility] [id number] 2020 [employer] - 00:00:00 DUAL ELIGIBLE (MEDICARE REPLACEMENT/ADVANTA GE - HMO) [facility] DUAL [id number] 2021 COMP HMO D SNP 00:00:00 MED[place]ID OF [place] [id number] 2013 00:00:00 Problems Condition Condition Condition Status [...] [place] in thyroid [place] thyroid 00 Wi dical 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 Vitamin D Vitamin D Disease Active Uni vers deficiency deficiency 9-10 it y of , , 00:00: [place] unspecifie unspecifie 00 Wi dical d d Branch ACUTE ACUTE Diagnosis Active 2017-102018-09-09 Mem oria APPENDICIT APPENDICIT 0-27 04:25:00 l IS IS Active 00:00: Chad 08/26/2018 00 [facility] Hypothyroi Hypothyro Problem 2019-03-16 Memoria dism, idism, 11:35:02 l unspecifie unspecifie He rmann d d 03/16/2019 [facility] Pure Pure Problem 2019-03-16 Memor ia hyperchole hyperchole 11:35:02 l sterolemia sterolemia He rmalf , , unspecifie unspecifie d d 03/16/2019 [facility] Unspecifie Unspecifi Problem 2019-03-16 Memoria d asthma, ed asthma, 11:35:02 l uncomplica uncomplica He yajaira haleigh haleigh 03/16/2019 [facility] Allergy Allergy Problem 2019-03-16 Me moria status to status to 11:35:02 l penicillin penicillin He yajaira 9 [facility] Amnesia Amnesia Problem Active 2021-01-01 M emoria (finding) (finding) 23:24:44 l Active Chad Problem [...] [facility] 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 23:24:44 l (disorder) (disorder) He rmann Active Problem 01/01/2021 [facility] Migraine Migraine Problem Active 2021-01-01 Memoria (disorder) (disorder) 23:24:44 l Active [place] Problem 01/01/2021 [facility] No known No known Disease Unive rs active active ity of problems problems [place] [facility] Carbuncle Carbuncle Problem Active [facility] Breast Breast Problem Active [facility] History of Past Illness Condition Condition Condition Status Onset Resolution Last Treating Co mments Source Name Details Category Date Date Treatment Clinician Date Unspecifie Unspecifi Problem 2017-102019-03-16 2019-03-16 Memoria d acute ed acute 11-01 11:35:02 11:35:02 l appendicit appendicit 03:58: He yajaira is is 50 09/01/2018 03/16/2019 [facility] Allergies, Adverse Reactions, Alerts Allergy Allergy Status [...] DRUG Active N/V 2020-0 Univers CHRISTINE INGREDI - ity of 00:00: [place] 00 Medical Branch PENICILL DRUG Active N/V 2020-0 Univers IN INGREDI - ity of 00:00: [place] 00 Medical [facility] Amoxicil Allergy Active Vomiting [place] [facility] penicill penicill Active Memori a ins ins l [place] Social History Social Habit Start Date Stop Date Quantity Comments Source Exposure to 2022-08-03 2022-08-13 Not sure University SARS-CoV-2 00:00:00 17:52:00 [place] [facility] (event) Branch Tobacco use and 2022-08-13 2022-08-13 Smokeless tobacco Un iversity of exposure 00:00:00 00:00:00 non-user [facility] Social History 2018-08-27 2018-08-27 Jillian traore 09:20:36 09:20:36 Sex Ass[birth year] At [birth year] Universit y of 00:00:00 00:00:00 [facility] Smoking Status Start Date Stop Date Source Never smoked tobacco [facility] Tobacco smoking consumption Univ ersity of [place] [facility] unknown Branch Medications Ordered Filled Start Stop Current Ordering Indication Dosage Frequency Signature Comments Components Source Medication Medication Date Date Medication? Clinician (SIG) Name Name sulfamethox 2021-10- No [id number] 1{tbl} Take 1 Univers azole-trime 0-14 10-22 tablet by it y of 00:00: 04:59 mouth in [place] (BACTRIM 00 :00 the Medical DS) 800-160 morning Branc h mg per and 1 tablet tablet in the evening. Do all this for 7 days. atorvastati Yes 10mg Take 10 mg Univers n 10 mg 8-23 by mouth ity of tablet 00:00: at [place] 00 bedtime. Medical Branch levothyroxi 2022- No 88ug Take 88 Un gaetano ne 88 mcg 8-13 08-14 mcg by ity of tablet 00:00: 04:59 mouth. [place] 00 :00 Medical Branch montelukast Yes TAKE 1 Univ ers 10 mg 7-22 TABLET BY ity of tablet 00:00: MOUTH ONCE [place] 00 DAILY AT Medical NIGHT Branch Cholecalcif [...] 02/27/21 at Branch 0145, Routine albuterol Yes [id number] 2{puff} Inhale 2 Univers 90 4-30 Puffs ity of mcg/actuati 00:00: every 4 Rajan as on inhaler 00 (four) Medical hours as Branch needed for Wheezing or Shortness of Breath. benzonatate Yes [id number] 100mg Take 1 Univers 100 mg 4-30 capsule by ity of capsule 00:00: mouth 3 [place] 00 (three) Medical times Branch daily as needed for Cough. albuterol Yes [id number] 2{puff} Inhale 2 Univers 90 4-30 Puffs ity of mcg/actuati 00:00: every 4 Rajan as on inhaler 00 (four) Medical hours as Branch needed for Wheezing or Shortness of Breath. benzonatate Yes [id number] 100mg Take 1 Univers 100 mg 4-30 capsule by ity of capsule 00:00: mouth 3 [place] 00 (three) Medical times Branch daily as needed for Cough. albuterol Yes [id number] 2{puff} Inhale 2 Univers 90 4-30 Puffs ity of mcg/actuati 00:00: every 4 Rajan as on inhaler 00 (four) Medical hours as Branch needed for Wheezing or Shortness of Breath. benzonatate Yes [id number] 100mg Take 1 Univers 100 mg 4-30 capsule by ity of capsule 00:00: mouth 3 [place] 00 (three) Medical times Branch daily as needed for Cough. predniSONE 2020- No [id number] 20mg Take 1 Univers 20 mg 4-30 [...] oral 8-26 Refill(s) l tablet 20:26: [place] 00 atorvastati 2020-0 Yes 0 Memori a n 10 mg 8-26 Refill(s) l oral tablet 20:26: Kirill n levothyroxi 2020-0 Yes 0 Memori a ne 75 mcg 8-26 Refill(s) l (0.075 mg) 20:26: [place] oral tablet montelukast 2020-0 Yes 0 Memori a 10 mg oral 8-26 Refill(s) l tablet 20:26: predniSONE 2019-0 Yes 0 Memoria 20 mg oral 8-26 Refill(s) l tablet 20:26: atorvastati 2019-0 Yes 0 Memori a n 10 mg 8-26 Refill(s) l oral tablet 20:26: Kirill n levothyroxi 2019-0 Yes 0 Memori a ne 75 mcg 8-26 Refill(s) l (0.075 mg) 20:26: Chad oral tablet montelukast 2020-0 Yes 0 Memori a 10 mg oral 8-26 Refill(s) l tablet 20:26: predniSONE 2019-0 Yes 0 Memoria 20 mg oral 8-26 Refill(s) l tablet 20:26: atorvastati 2019-0 Yes 0 Memori a n 10 mg 8-26 Refill(s) l oral tablet 20:26: levothyroxi 2019-0 Yes 0 Memori a ne 75 mcg 8-26 Refill(s) l (0.075 mg) 20:26: oral tablet montelukast 2020-0 Yes 0 Memori a 10 mg oral 8-26 Refill(s) l tablet 20:26: predniSONE 2020-0 Yes 0 Memoria 20 mg oral 8-26 Refill(s) l tablet 20:26: atorvastati 2017-10 No Notes: Gerson cathy n 0-29 (Same As: l 02:00: Lipitor) atorvastati 2017-10 No Notes: Gerson cathy n 0-29 (Same As: l 02:00: Lipitor) atorvastati 2017-10 No Notes: Gerson cathy n 0-29 (Same As: l 02:00: Lipitor) atorvastati 2017-10 No Notes: Gerson cathy n 0-29 (Same As: l 02:00: Lipitor) Chad 00 albuterol 2017-10 No Notes: SEE Me moria 0-28 RT l 14:07: DOCUMENTAT Chad 00 ION (Same as: Proventil) albuterol 2017-10 No Notes: SEE Me moria 0-28 RT l 14:07: DOCUMENTAT [place] 00 ION (Same as: Proventil) albuterol 2017-10 No Notes: SEE Me moria 0-28 RT l 14:07: DOCUMENTAT [place] 00 ION (Same as: Proventil) albuterol 2017-10 No Notes: SEE Me moria 0-28 RT l 14:07: DOCUMENTAT Chad 00 ION (Same as: Proventil) montelukast 2017-10 No Notes: Gerson cathy 0-28 (Same l 14:00: as:Singula [place] 00 ir) Thyroxine 2017-10 No Notes: Memori [...] 0-28 Take 1 l 14:00: hour [place] 00 before or 2 hours after meal; Enteral feeds may interefere with the absorption of this medication . (Same as:Synthro id, Levothroid ) montelukast 2017-10 No Notes: Gerson cathy 0-28 (Same l 14:00: as:Singula [place] 00 ir) Thyroxine 2017-10 No Notes: Memori [...] 0-28 Take 1 l 14:00: hour [place] 00 before or 2 hours after meal; Enteral feeds may interefere with the absorption of this medication . (Same as:Synthro id, Levothroid ) ketOROLAC 2017-10 No IV, ONCE Gerson cathy (ANES) 0-28 l 13:58: [place] 00 glycopyrrol 2017-10 No Route: IV, Memoria [...] ondansetron 2017-10 No Route: IV, Memoria (ANES) 0- Drug form: l 13:58: INJ, ONCE, Stop date: 08/27/18 8:58:00 CDT dexamethaso 2017-10 No Route: IV, Memoria ne (ANES) 0- Drug form: l 13:58: INJ, ONCE, Stop date: 08/27/18 8:58:00 CDT ketOROLAC 2017-10 No IV, ONCE Gerson cathy (ANES) 0-28 l 13:58: [place] 00 glycopyrrol 2017-10 No Route: IV, Memoria ate (ANES) 0- Drug form: l 13:58: INJ, ONCE, Stop date: 08/27/18 8:58:00 CDT neostigmine 2017-10 No Route: IV, Memoria (ANES) 0- Drug form: l 13:58: INJ, ONCE, Stop date: 08/27/18 8:58:00 CDT ondansetron 2017-10 No Route: IV, Memoria (ANES) 0-28 Drug form: l 13:58: INJ, ONCE, Stop date: 08/27/18 8:58:00 CDT dexamethaso 2017-10 No Route: IV, Memoria ne (ANES) 0- Drug form: l 13:58: INJ, ONCE, Stop date: 08/27/18 8:58:00 CDT Acetaminoph 2017-10 No Notes: Do M emoria en 300 MG / 0-28 not exceed l Codeine 13:57: 4gm/day of Herm 00 acetaminop 30 MG Oral hen. (Same Tablet as: [Tylenol Tylenol with with Codeine #3] Codeine # 3) Morphine 2017-10 No Notes: Memoria 0-28 Preservati l 13:57: ve free. Chad 00 (Same as: Morphine Sulfate-PF ) 200 ACTUAT 2017-10 No 180 Memoria Albuterol 0-28 microgram, l 0.09 13:57: 2 puff, Chad MG/ACTUAT 00 Route: Metered INHALER, Dose Drug Form: Inhaler AERO/A, [ProAir Dosing HFA] Weight 86.818, kg, Q4H, PRN Pain Score 1-3, Start date: 08/27/18 8:57:00 CDT, Duration: 30 day, Stop date: 09/26/18 8:56:00 J[employer]STING [employer]ER Acetaminoph 2017-10 No Notes: Do M emoria en 300 MG / 0-28 not exceed l Codeine 13:57: 4gm/day of Herm alf Phosphate 00 acetaminop 30 MG Oral hen. (Same Tablet as: [Tylenol Tylenol with with Codeine #3] Codeine # 3) Morphine 2017-10 No Notes: Memoria 0-28 Preservati l 13:57: ve free. Chad (Same as: Morphine Sulfate-PF ) 200 ACTUAT 2017-10 No 180 Memoria Albuterol 0-28 microgram, l 0.09 13:57: 2 puff, Chad MG/ACTUAT 00 Route: Metered INHALER, Dose Drug Form: Inhaler AERO/A, [ProAir Dosing HFA] Weight 86.818, kg, Q4H, PRN Pain Score 1-3, Start date: 08/27/18 8:57:00 CDT, Duration: 30 day, Stop date: 09/26/18 8:56:00 J[employer] Acetaminoph 2017-10 No Notes: Do M emoria en 300 MG / 0-28 not exceed l Codeine 13:57: 4gm/day of Herm alf Phosphate 00 acetaminop 30 MG Oral hen. (Same Tablet as: [Tylenol Tylenol with with Codeine #3] Codeine # 3) Morphine 2017-10 No Notes: Memoria 0-28 Preservati l 13:57: ve free. [place] 00 (Same as: Morphine Sulfate-PF ) 200 ACTUAT 2017-10 No 180 Memoria Albuterol 0-28 microgram, l 0.09 13:57: 2 puff, Chad MG/ACTUAT 00 Route: Metered INHALER, Dose Drug Form: Inhaler AERO/A, [ProAir Dosing HFA] Weight 86.818, kg, Q4H, PRN Pain Score 1-3, Start date: 08/27/18 8:57:00 CDT, Duration: 30 day, Stop date: 09/26/18 8:56:00 [employer] Acetaminoph 2017-10 No Notes: Do M emoria en 300 MG / 0-28 not exceed l Codeine 13:57: 4gm/day of Herm alf Phosphate 00 acetaminop 30 MG Oral hen. (Same Tablet as: [Tylenol Tylenol with with Codeine #3] Codeine # 3) Morphine 2017-10 No Notes: Memoria 0-28 Preservati l 13:57: ve free. [place] 00 (Same as: Morphine Sulfate-PF ) 200 ACTUAT 2017-10 No 180 Memoria Albuterol 0-28 microgram, l 0.09 13:57: 2 puff, Chad MG/ACTUAT 00 Route: Metered INHALER, Dose Drug Form: Inhaler AERO/A, [ProAir Dosing HFA] Weight 86.818, kg, Q4H, PRN Pain Score 1-3, Start date: 08/27/18 8:57:00 CDT, Duration: 30 day, Stop date: 09/26/18 8:56:00 [employer] clindamycin 2017-10 No Route: IV, Memoria (ANES) 0-28 Drug form: l 13:45: INJ, ONCE, Chad Stop date: 08/27/18 8:45:00 CDT clindamycin 2017-10 No Route: IV, Memoria (ANES) 0-28 Drug form: l 13:45: INJ, ONCE, [place] Stop date: 08/27/18 8:45:00 CDT clindamycin 2017-10 No Route: IV, Memoria (ANES) 0-28 Drug form: l 13:45: INJ, ONCE, Chad Stop date: 08/27/18 8:45:00 CDT clindamycin 2017-10 No Route: IV, Memoria (ANES) 0-28 Drug form: l 13:45: INJ, ONCE, Stop date: 08/27/18 8:45:00 CDT fentaNYL 2018 No Route: IV, Mem oria (ANES) 0-28 Drug form: l 13:40: INJ, ONCE, Stop date: 08/27/18 8:40:00 CDT rocuronium 2018 No Route: IV, M emoria (ANES) 0-28 Drug form: l 13:40: INJ, ONCE, Stop date: 08/27/18 8:40:00 CDT propofol 2018 No Route: IV, Mem oria (ANES) 0-28 Drug form: l 13:40: INJ, ONCE, Stop date: 08/27/18 8:40:00 CDT fentaNYL 2018 No Route: IV, Mem oria (ANES) 0-28 Drug form: l 13:40: INJ, ONCE, Stop date: 08/27/18 8:40:00 CDT rocuronium 2018 No Route: IV, M emoria (ANES) 0-28 Drug form: l 13:40: INJ, ONCE, Stop date: 08/27/18 8:40:00 CDT propofol 2018 No Route: IV, Mem oria (ANES) 0-28 Drug form: l 13:40: INJ, ONCE, Stop date: 08/27/18 8:40:00 CDT fentaNYL 2018 No Route: IV, Mem oria (ANES) 0-28 Drug form: l 13:40: INJ, ONCE, Stop date: 08/27/18 8:40:00 CDT rocuronium 2018 No Route: IV, M emoria (ANES) 0-28 Drug form: l 13:40: INJ, ONCE, Stop date: 08/27/18 8:40:00 CDT propofol 2018 No Route: IV, Mem oria (ANES) 0-28 Drug form: l 13:40: INJ, ONCE, Stop date: 08/27/18 8:40:00 CDT fentaNYL 2018 No Route: IV, Mem oria (ANES) 0-28 Drug form: l 13:40: INJ, ONCE, Chad 00 Stop date: 08/27/18 8:40:00 CDT rocuronium 2018- No Route: IV, M emoria (ANES) 0-28 Drug form: l 13:40: INJ, ONCE, [place] 00 Stop date: 08/27/18 8:40:00 CDT propofol 2018 No Route: IV, Mem oria (ANES) 0-28 Drug form: l 13:40: INJ, ONCE, Chad 00 Stop date: 08/27/18 8:40:00 CDT midazolam 2017-10 No Route: IV, Me moria (ANES) 0-28 Drug form: l 13:35: SOLN, [place] ONCE, Stop date: 08/27/18 8:35:00 CDT lidocaine 2017-10 No Route: IV, Me moria (ANES) 0-28 Drug form: l 13:35: INJ, ONCE, [place] 00 Stop date: 08/27/18 8:35:00 CDT midazolam 2017-10 No Route: IV, Me moria (ANES) 0-28 Drug form: l 13:35: SOLN, Chad ONCE, Stop date: 08/27/18 8:35:00 CDT lidocaine 2018 No Route: IV, Me moria (ANES) 0-28 Drug form: l 13:35: INJ, ONCE, Chad 00 Stop date: 08/27/18 8:35:00 CDT midazolam 2018 No Route: IV, Me moria (ANES) 0-28 Drug form: l 13:35: SOLN, Chad 00 ONCE, Stop date: 08/27/18 8:35:00 CDT lidocaine 2017-10 No Route: IV, Me moria (ANES) 0-28 Drug form: l 13:35: INJ, ONCE, Chad Stop date: 08/27/18 8:35:00 CDT midazolam 2018 No Route: IV, Me moria (ANES) 0-28 Drug form: l 13:35: SOLN, [place] 00 ONCE, Stop date: 08/27/18 8:35:00 CDT lidocaine 2018 No Route: IV, Me moria (ANES) 0-28 [...] a virus 0-28 (Same as: l vaccine, :28: Fluzone Kirill n inactivated 52 Quadrivale nt, [...] Memoria 0-28 Daily, 0 l 09:24: Refill(s) Chad 00 atorvastati 2017-10 Yes 10 mg, PO, Memoria n 0-28 Bedtime, 0 l 09:24: Refill(s) [place] 00 Thyroxine 2017-10 Yes 75 Memoria 0-28 microgram, l 09:24: PO, Daily, [place] 00 0 Refill(s) 200 ACTUAT 2017-10 Yes 2 puff, Gerson cathy Albuterol 0-28 INHALER, l 0.09 09:24: Q4H, PRN Chad MG/ACTUAT 00 wheezing, Metered coughing, Dose or Inhaler shortness [ProAir of breath, HFA] # 1 ea, 1 Refill(s) montelukast 2017-10 Yes 10 mg, PO, Memoria 0-28 Daily, 0 l 09:24: Refill(s) [place] 00 atorvastati 2017-10 Yes 10 mg, PO, Memoria n 0-28 Bedtime, 0 l 09:24: Refill(s) [place] 00 Thyroxine 2017-10 Yes 75 Memoria 0-28 microgram, l 09:24: PO, Daily, [place] 00 0 Refill(s) 200 ACTUAT 2017-10 Yes 2 puff, Gerson cathy Albuterol 0-28 INHALER, l 0.09 09:24: Q4H, PRN Chad MG/ACTUAT 00 wheezing, Metered coughing, Dose or Inhaler shortness [ProAir of breath, HFA] # 1 ea, 1 Refill(s) montelukast 2017-10 Yes 10 mg, PO, Memoria 0-28 Daily, 0 l 09:24: Refill(s) [place] 00 atorvastati 2017-10 Yes 10 mg, PO, Memoria n 0-28 Bedtime, 0 l 09:24: Refill(s) Chad Thyroxine 2017-10 Yes 75 Memoria 0-28 microgram, l 09:24: PO, Daily, [place] 00 0 Refill(s) 200 ACTUAT 2017-10 Yes [...] Memoria 0-28 microgram, l 09:24: PO, Daily, 00 0 Refill(s) atorvastati atorvastati No atorvastat [...] Source BP Diastolic 2022-09-13 00:00:00 76 mm[Hg] [facility] Height 2022-09-13 00:00:00 62 [in_i] [facility] BMI (Body Mass 2022-09-13 00:00:00 33.1 kg/m2 [facility]) Group BP Systolic 2022-09-13 00:00:00 132 mm[Hg] [facility] Body Weight 2022-09-13 00:00:00 181 [lb_av] [facility] BP Diastolic 2022-08-23 00:00:00 87 mm[Hg] [facility] Height 2022-08-23 00:00:00 62 [in_i] [facility] BMI (Body Mass 2022-08-23 00:00:00 33.1 kg/m2 [facility]) Group BP Systolic 2022-08-23 00:00:00 133 mm[Hg] [facility] Body Weight 2022-08-23 00:00:00 181 [lb_av] [facility] Systolic blood 2022-08-13 23:02:00 121 mm[Hg] Univer sity of pressure [facility] Diastolic blood 2022-08-13 23:02:00 79 mm[Hg] Unive rsity of pressure [facility] Heart rate 2022-08-13 23:02:00 86 /min [facility] Body temperature 2022-08-13 23:02:[address] [facility] [place] [place] ersity of [place] [facility] [place] Respiratory rate 2022-08-13 23:02:00 18 /min Univ [facility] [place] [facility] Body height 2022-08-13 23:02:00 157.5 cm [facility] [place] [facility] [place] Body weight 2022-08-13 23:02:00 81.761 kg [facility] [place] [facility] BMI 2022-08-13 23:02:00 32.97 kg/m2 Universi ty of [facility] Oxygen saturation in 2022-08-13 23:02:00 97 /min University of Arterial blood by [facility] Pulse oximetry Branch Systolic blood 2021-02-27 07:01:48 133 mm[Hg] Univer sity of pressure [place] [facility] [place] Diastolic blood 2021-02-27 07:01:48 85 mm[Hg] Unive rsity of pressure [facility] Heart rate 2021-02-27 07:01:48 76 /min [facility] [place] [facility] [place] Respiratory rate 2021-02-27 07:01:48 19 /min [facility] [place] ersity of [facility] Oxygen saturation in 2021-02-27 07:01:48 98 /min University of Arterial blood by [facility] Pulse oximetry Branch Body temperature 2021-02-27 02:47:[address] [facility] [place] [place] ersity of [facility] Body height 2021-02-27 02:47:00 157.5 cm [facility] [place] [facility] [place] Body weight 2021-02-27 02:47:00 86.637 kg [facility] [place] [facility] [place] BMI 2021-02-27 02:47:00 34.93 kg/m2 [facility] [place] [facility] Systolic (mm Hg) 2020-09-02 20:31:00 Gerson rial Chad Diastolic (mm Hg) 2020-09-02 20:31:00 Mem orial Chad Heart Rate 2020-09-02 20:31:00 [facility] [place] Respitory Rate 2020-09-02 20:31:00 Joonori al Chad Height 2020-09-02 20:31:00 157.48 cm Memorial [facility] Weight 2020-09-02 20:31:00 [facility] [place] BMI Calculated 2020-09-02 20:31:00 [facility] al Chad Systolic (mm Hg) 2020-08-01 20:24:00 Gerson rial Chad Diastolic (mm Hg) 2020-08-01 20:24:00 Mem orial [place] Heart Rate 2020-08-01 20:24:00 [facility] [place] Respitory Rate 2020-08-01 20:24:00 Memori al Chad Height 2020-08-01 20:24:00 157.48 cm Memorial Chad Weight 2020-08-01 20:24:00 [facility] Chad BMI Calculated 2020-08-01 20:24:00 Memori al Chad Systolic (mm Hg) 2020-06-25 20:18:00 Gerson rial Chad Diastolic (mm Hg) 2020-06-25 20:18:00 Mem orial [place] Heart Rate 2020-06-25 20:18:00 Memorial Chad Respitory Rate 2020-06-25 20:18:00 Memori al Chad Height 2020-06-25 20:18:00 157.48 cm [facility] [place] Weight 2020-06-25 20:18:00 Memorial Chad BMI Calculated 2020-06-25 20:18:00 Memori al [place] Systolic (mm Hg) 2018-08-27 21:00:00 Gerson rial Chad Diastolic (mm Hg) 2018-08-27 21:00:00 Mem orial [place] Respitory Rate 2018-08-27 21:00:00 Memori al [place] Heart Rate 2018-08-27 21:00:00 [facility] Chad Temperature Oral (F) 2018-08-27 21:00:00 98.4 F [facility] [place] Heart Rate 2018-08-27 17:00:00 [facility] [place] Temperature Oral (F) 2018-08-27 17:00:00 98.1 F [facility] [place] Systolic (mm Hg) 2018-08-27 17:00:00 Gerson rial [place] Diastolic (mm Hg) 2018-08-27 17:00:00 Mem orial [place] Respitory Rate 2018-08-27 17:00:00 Memori al Chad Systolic (mm Hg) 2018-08-27 15:35:00 Gerson rial Chad Diastolic (mm Hg) 2018-08-27 15:35:00 Mem orial Chad Respitory Rate 2018-08-27 15:35:00 Memori al Chad Temperature Oral (F) 2018-08-27 11:41:00 98.9 F [facility] [place] Heart Rate 2018-08-27 11:41:00 [facility] BMI Calculated 2018-08-27 09:22:00 [facility] Stallings Height 2018-08-27 09:22:00 157.48 cm Jillian Bonilla Weight 2018-08-27 09:22:00 [facility] Procedure Date / Time Performing Clinician Source Performed ASSIGNMENT OF BENEFITS 2022-08-13 22:52:32 Doctor Unassigned, [facility] XR CHEST 1 VW 2021-02-27 05:53:31 Adrianna Carmichael [facility] COVID-19 (ID NOW RAPID 2021-02-27 05:45:00 Adrianna Carmichael [facility] TESTING) Medical Branch NOTICE OF PRIVACY 2021-02-27 02:35:47 Doctor Unassigned, [facility] PRACTICES [place] [facility] CONSENT/REFUSAL FOR 2021-02-27 02:35:09 Doctor Unassnathan, [facility] DIAGNOSIS AND TREATMENT [place] [facility] Other 2010-03-02 00:00:00 [facility] Ch[facility] Excision of cyst of breast Memor ial [place] [facility] Plan of Care Planned Activity Planned Date Details Comments Source Instructions [facility] Encounters Start End Encounter Admission Attending Care Care Encounter Source Date/Time Date/Time Type Type Clinicians Facility Department ID 2022-09-14 2022-09-14 Outpatient Young_J MMG [facility] [id number] [place] 00:00:00 00:00:00 [facility] 2022-09-14 2022-09-14 [id number] [place] 00:00:00 00:00:00 [facility] 2022-09-13 2022-09-13 Outpatient Young_J MM[facility] [id number] [place] 00:00:00 00:00:00 [facility] 2022-09-13 2022-09-13 Ambrosio COOL [place] - [id number] M [facility] 00:00:00 00:00:00 DO Gucci: [facility] [address] [facility] [place] [place] - [address], [facility] [place] [address] , Ph. [phone] 2022-09-10 2022-09-10 Outpatient Gucci_J MMG [facility] [id number] [place] 00:00:00 00:00:00 1111 [facility] Group 2022-09-07 2022-09-07 [id number] [place] 00:00:00 00:00:00 [id number] [facility] Group 2022-08-27 2022-08-27 Outpatient SERENE GUCCI, [facility] [id number] [place] 06:19:00 06:19:00 AMBROSIO -[id number] Pending sale to [facility] 2022-08-23 2022-08-23 Outpatient Gucci_J MMG [facility] [id number] [place] 00:00:00 00:00:00 1024 [facility] 2022-08-23 2022-08-23 Ambrosio [facility] [place] - [id number] M atagor 00:00:00 00:00:00 Gucci, DO: Discovery obi cummings 600 [facility] [place] [place] - [address], [facility] [place], [place] [address] , Ph. [phone] 2022-08-20 2022-08-20 Outpatient Gucci[facility] [id number] [place] 00:00:00 00:00:00 [facility] 2022-08-13 2022-08-13 Outpatient R TALISHA [facility] [id number] Univers 18:00:00 18:18:02 MOLLY murphy [facility] 2022-08-13 2022-08-13 Urgent Molly Woodall [facility] [id number] Univers 18:00:00 18:18:02 Care Unknown, Attending HEALTH [id number] itadelf[address] [facility] [id number] Rajan as LEX?BLEA [phone] [address] MEDICAL OFFICE BUILDING 2022-08-13 2022-08-13 Outpatient R UNKNOWN, [facility] [id number] Univers 18:00:00 18:00:00 [facility]22-08-13 2022-08-13 Outpatient R UNKNOWN, [facility] [id number] Univers 18:00:00 18:00:00 ATTENDING [facility] 2022-08-13 2022-08-13 Orders Doctor VILLEDA [id number] Univers 00:00:00 00:00:00 Only Unassigned, CHRISTIANO [id number] ity [facility] [id number] Rajan [phone] [facility] [address] Branch 2021-02-26 2021-02-27 Emergency [facility] [id number] Univers 21:51:00 02:05:00 Adrianna Velasquez [id number] ity [facility] [id number] [facility] [phone] [facility] 084 Branch 2021-02-26 2021-02-27 Emergency X [facility] ERT [id number] Univers 21:51:00 02:05:00 ADRIANNA [facility] 2020-12-30 2020-12-30 Ambulatory nullFlavo MNA [id number] Memoria 20:30:00 20:30:00 Pre-Reg r Neurology 04 l Radha Bonilla 2020-12-30 2020-12-30 Ambulatory nullFlavo MNA [id number] Memoria 20:30:00 20:30:00 Pre-Reg r Neurology 04 l Radha Bonilla 2020-12-30 2020-12-30 Outpatient MHIE MHIE [id number] Memoria 14:30:00 14:30:00 Xin Bonilla 2020-12-30 2020-12-30 Outpatient KELSEY MiddletonMISCHFLORENTINO [id number] 14:30:00 14:30:00 Radu Carreon 2020-09-02 2020-09-03 Outpatient nullFlavo MNA [id number] Memoria 20:30:00 05:59:59 r Neurology 03 l Radha Bonilla 2020-09-02 2020-09-03 Outpatient nullFlavo MNA [id number] Memoria 20:30:00 05:59:59 r Neurology 03 l Radha Bonilla 2020-09-02 2020-09-02 Outpatient [facility] [id number] 14:30:00 23:59:59 Radu 03 Lauri 2020-09-02 2020-09-02 Outpatient MHIE MHIE [id number] Memoria 14:30:00 14:30:00 03 l Chad 2020-08-05 2020-08-06 Outpatient nullFlavo MNA [id number] Memoria 19:00:00 04:59:59 r Neurology 02 l Pearson Chad 2020-08-05 2020-08-06 Outpatient nullFlavo MNA [id number] Memoria 19:00:00 04:59:59 r Neurology 02 l Pearson Chad 2020-08-05 2020-08-05 Outpatient [facility] [id number] 14:00:00 23:59:59 Radu Lauri 2020-08-05 2020-08-05 Outpatient MHIE MHIE [id number] Memoria 14:00:00 14:00:00 02 l [place] 2020-08-01 2020-08-02 Outpatient nullFlavo MNA [id number] Memoria 20:30:00 04:59:59 r Neurology 01 l Pearson Chad 2020-08-01 2020-08-02 Outpatient nullFlavo MNA [id number] Memoria 20:30:00 04:59:59 r Neurology 01 l Pearson [place] 2020-08-01 2020-08-01 Outpatient Kane [facility] [id number] 15:30:00 23:59:59 Radu Lauri 2020-08-01 2020-08-01 Outpatient MHIE MHIE [id number] Memoria 15:30:00 15:30:00 01 l Chad 2020-06-25 2020-06-26 Outpatient nullFlavo MNA [id number] Memoria 20:15:00 04:59:59 r Neurology 00 l Pearson [place] 2020-06-25 2020-06-26 Outpatient nullFlavo MNA [id number] Memoria 20:15:00 04:59:59 r Neurology 00 l Pearson Chad 2020-06-25 2020-06-25 Outpatient KELSEY Middleton [id number] 15:15:00 23:59:59 Radu 00 Lauri 2020-06-25 2020-06-25 Outpatient GEO GUARDADO [id number] Memoria 15:15:00 15:15:00 00 pipe Bonilla 2018-08-27 2018-08-27 Bedded [facility] [id number] Memoria 20:07:00 22:00:00 Outpatient r Chad 01 [facility] 2018-08-27 2018-08-27 Bedded [facility] [id number] Memoria 20:07:00 22:00:00 Outpatient r Chad 01 [facility] 2018-08-27 2018-08-27 Outpatient Brando, [facility] [id number] 15:07:00 17:00:00 [place] 01 Imariabe 2017-01-30 2017-01-30 Outpatient Young_J MMG MMG [id number] [place] 00:00:00 00:00:00 0402 [facility] Results Test Description Test Time Test Comments Results Result Comments Source COVID-19 (ID NOW RAPID TESTING) 2021-02-27 06:08:44 Test Item Value Reference Range Interpretation Comme nts SARS-CoV-2 Rapid ID NOW (test code Not Detected Not Detected = 64712-3) ABHINAV (test code = ABHINAV) ID NOW COVID-19 Assay is an isothermal nucleic acid amplification test intended for the qualitative detection of nucleic acid from SARS-CoV-2 viral RNA in 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 It is used under Emergency Use [...] indicated. Lab Interpretation (test code = Normal 60858-9) [facility]
--- NOTE | 2023-09-27 17:35 | EDPHYS ---
Physician Documentation [facility] Name: Deuce Fuller Age: 38 yrs Sex: Female : 1985 Arrival Date: 09/27/2023 Time: 16:24 Bed IW8 Private MD: ED Physician Jay Coles HPI: 09/27 17:21 This 38 yrs old Female presents to ER via Unassigned with complaints of Suture Removal. cp 17:21 The patient has sutures on the right index finger. Previous treatment: The patient was cp initially treated on September 14, 2023, the care was rendered at [facility]. Sutures/eva progress: The patient has no c/o's. The wound is well-healing with no redness, swelling, discharge, or dehiscence reported. Historical: - Allergies: 17:40 Amoxicillin; aa5 17:40 PENICILLINS; aa5 - PMHx: 17:40 Hypercholesterolemia; Hypothyroidism; aa5 - PSHx: 17:40 Appendectomy; Cholecystectomy; scar tissure removed from left breast; aa5 ROS: 17:23 Skin: Positive for of the right index finger, repaired laceration, cp 17:23 All other systems are negative, Exam: 17:24 Skin: Wound recheck: Suture laceration closure: [address] noted middle and cp proximal phalanx of right index finger. Examination of the repair laceration shows no dehiscence, no swelling and no erythema. No drainage expressed from the repaired laceration, Vital Signs: 17:40 BP 132 / 88; Pulse 72; Resp 16 S; Temp 98(TE); Pulse Ox 98% on R/A; aa5 Procedures: 17:22 Suture/Staple removal: Removed 6 sutures, from right index finger, site appears well cp healed, Patient tolerated well. MDM: 17:34 Patient medically screened. cp 17:34 Data reviewed: vital signs, nurses notes. cp 17:34 Counseling: I had a detailed discussion with the patient and/or guardian regarding the cp historical points, exam findings, and any diagnostic results supporting the discharge/admit diagnosis, to return to the emergency department if symptoms worsen or persist or if there are any questions or concerns that arise at home. Response to treatment: the patient's symptoms have markedly improved after treatment, and as a result, I will discharge patient. 09/27 17:26 Order name: Finger Splint; Complete Time: 17:53 cp 09/27 17:26 Order name: Wound dressing; Complete Time: 17:53 cp Administered Medications: No medications were administered Disposition Summary: 09/27/23 17:34 Discharge Ordered Notes: Location: Home cp Problem: new cp Symptoms: have improved cp Condition: Stable cp Diagnosis - Encounter for removal of sutures cp Followup: cp - With: Emergency Department - When: As needed - Reason: Worsening of condition Discharge Instructions: - Discharge Summary Sheet cp - Suture Removal, Care After cp Forms: - Medication Reconciliation Form cp - Thank You Letter cp - Antibiotic Education cp - Prescription Opioid Use cp - Patient Portal Instructions cp - Leadership Thank You Letter cp Signatures: Nyla Rothman RN RN aa5 Jay Cardona PA PA cp
--- NOTE | 2023-09-27 17:54 | ER ---
Nurse's Notes [facility] Name: Deuce Fuller Age: 38 yrs Sex: Female : 1985 Arrival Date: 09/27/2023 Time: 16:24 Bed IW8 Private MD: Diagnosis: Encounter for removal of sutures Presentation: 09/27 17:40 Chief complaint: Patient states: need for suture removal to right index finger. aa5 17:40 Coronavirus screen: At this time, the client does not indicate any symptoms associated aa5 with coronavirus-19. Ebola Screen: Patient denies travel to an Ebola-affected area in the 21 days before illness onset. Initial Sepsis Screen: Does the patient meet any 2 criteria? No. Patient's initial sepsis screen is negative. Does the patient have a suspected source of infection? No. Patient's initial sepsis screen is negative. Risk Assessment: Do you want to hurt yourself or someone else? Patient reports no desire to harm self or others. Onset of symptoms was September 27, 2023. 17:40 Acuity: RAUL 4 aa5 17:40 Method Of Arrival: Ambulatory aa5 Historical: - Allergies: 17:40 Amoxicillin; aa5 17:40 PENICILLINS; aa5 - PMHx: 17:40 Hypercholesterolemia; Hypothyroidism; aa5 - PSHx: 17:40 Appendectomy; Cholecystectomy; scar tissure removed from left breast; aa5 Assessment: 17:50 Reassessment: PA removed sutures, dressing applied and finger splint applied, pt aa5 tolerated well. . 17:50 Reassessment: Patient is alert, oriented x 3, equal unlabored respirations, skin aa5 warm/dry/pink. Vital Signs: 17:40 BP 132 / 88; Pulse 72; Resp 16 S; Temp 98(TE); Pulse Ox 98% on R/A; aa5 ED Course: 16:27 Patient arrived in ED. mg5 16:32 Jay Cardona PA is PHCP. cp 16:32 Jay Coles MD is Attending Physician. cp 17:40 Arm band placed on. aa5 17:50 No provider procedures requiring assistance completed. Patient did not have IV access aa5 during this emergency room visit. 19:29 Triage completed. aa5 Administered Medications: No medications were administered Outcome: 17:34 Discharge ordered by . cp 17:50 Discharged to home ambulatory, aa5 17:50 Condition: good 17:50 Discharge instructions given to patient, Instructed on discharge instructions, follow up and referral plans. medication usage, Demonstrated understanding of instructions, follow-up care, medications, splint care, 17:53 Patient left the ED. aa5 Signatures: Nyla Rothman RN RN aa5 Jay Cardona PA PA cp [place], [place] mg5
== END 2023-09-27 17:53 | disposition home or self-care (01) ==
LOC: ER 16:24
DX: Z48.02 Encounter for removal of sutures (principal)
CPT/HCPCS: 99283

== ENCOUNTER 2023-10-04 09:13 | Emergency (ER) | payer OTHER ==
--- NOTE | 2023-10-04 10:20 | ER ---
Nurse's Notes [facility] Name: Deuce Fuller Age: 38 yrs Sex: Female : 1985 Arrival Date: 10/04/2023 Time: 09:13 Bed 12 Private MD: Diagnosis: Pain to left second finger Presentation: 10/04 10:07 Chief complaint: Patient states: R hand 2nd digit pain and limited movement since ll1 getting her stitches removed 09/27. Coronavirus screen: Client denies travel out of the [place] in the last 14 days. At this time, the client does not indicate any symptoms associated with coronavirus-19. Ebola Screen: Patient denies travel to an Ebola-affected area in the 21 days before illness onset. Initial Sepsis Screen: Does the patient meet any 2 criteria? No. Patient's initial sepsis screen is negative. Does the patient have a suspected source of infection? Yes: Skin breakdown/wound. Risk Assessment: Do you want to hurt yourself or someone else? Patient reports no desire to harm self or others. Onset of symptoms was September 14, 2023. 10:07 Method Of Arrival: Ambulatory ll1 10:07 Acuity: RAUL 4 ll1 Triage Assessment: 10:07 General: Appears in no apparent distress. Behavior is calm, cooperative, appropriate ll1 for age. Pain: Complains of pain in R hand 2nd digit Pain currently is 9 out of 10 on a pain scale. Quality of pain is described as aching, throbbing. Musculoskeletal: Circulation, motion, and sensation intact. Capillary refill < 3 seconds, Reports pain in R hand 2nd digit. Injury Description: Laceration sustained to L hand 2nd digit s/p suture repair. 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 - Social history:: Smoking status: Patient denies any tobacco usage or history of. - Family history:: not pertinent. Screenin:53 [facility] ED Fall Risk Assessment (Adult) Score/Fall Risk Level 0 - 2 = Low Risk ll1 Oriented to surroundings, Maintained a safe environment, Educated pt \T\ family on fall prevention, incl call for assistance when getting out of bed, Hourly rounding (assess needs \T\ fall precautionary measures) done. Abuse screen: Denies threats or abuse. Nutritional screening: No deficits noted. Tuberculosis screening: No symptoms or risk factors identified. Assessment: 10:53 Reassessment: No changes from previously documented assessment. Patient and/or family ll1 updated on plan of care and expected duration. Pain level reassessed. Patient is alert, oriented x 3, equal unlabored respirations, skin warm/dry/pink. Vital Signs: 10:07 BP 157 / 103; Pulse 79; Resp 17; Temp 97.2; Pulse Ox 100% ; Weight 87.54 kg; Height 5 ll1 ft. 2 in. ; Pain 910; 10:07 Body Mass Index 35.30 (87.54 kg, 157.48 cm) ll1 10:07 Pain Scale: Adult ll1 ED Course: 09:15 Patient arrived in ED. im 09:50 Layton Corrigan MD is Attending Physician. rt 10:06 Arm band placed on. ll1 10:08 Triage completed. ll1 10:53 Patient has correct armband on for positive identification. Bed in low position. Call ll1 light in reach. Provided Education on: n/a. 10:53 No provider procedures requiring assistance completed. Patient did not have IV access ll1 during this emergency room visit. Administered Medications: 10:47 Drug: Ketorolac IM 15 mg IM once Route: IM; Site: left gluteus; ll1 11:04 Follow up: Response: No adverse reaction ll1 Medication: 11:05 VIS not applicable for this client. ll1 Outcome: 10:20 Discharge ordered by . rt 10:53 Patient left the ED. ll1 10:53 Discharged to home ambulatory, ll1 10:53 Condition: stable 10:53 Discharge instructions given to patient, Instructed on discharge instructions, follow up and referral plans. Demonstrated understanding of instructions, follow-up care, wound care, Signatures: Kezia Patricia RN RN ll1 Layton Corrigan MD MD rt Courtney Molina im
--- NOTE | 2023-10-04 10:20 | EDPHYS ---
Physician Documentation [facility] Name: Deuce Fuller Age: 38 yrs Sex: Female : 1985 Arrival Date: 10/04/2023 Time: 09:13 Bed 12 Private MD: ED Physician Layton Corrigan HPI: 10/04 12:02 This 38 yrs old Female presents to ER via Ambulatory with complaints of Finger Injury. rt 12:02 Patient had a recent laceration with repair to the right index finger. Sutures rt subsequently removed, placed back in a splint. Patient states that she has pain to the area, has pain with movement. Denies fever, chills. Denies other acute complaints, symptoms are mild in severity, no other aggravating elevating factors.. 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 - Social history:: Smoking status: Patient denies any tobacco usage or history of. - Family history:: not pertinent. ROS: 12:03 Constitutional: Negative for fever, chills, and weight loss, Skin: Negative for injury, rt rash, and discoloration, Neuro: Negative for headache, weakness, numbness, tingling, and seizure, 12:03 MS/extremity: Positive for decreased range of motion, pain, Exam: 12:03 Constitutional: This is a well developed, well nourished patient who is awake, alert, rt and in no acute distress. Head/Face: Normocephalic, atraumatic. Chest/axilla: Normal chest wall appearance and motion. Nontender with no deformity. No lesions are appreciated. Cardiovascular: Regular rate and rhythm with a normal S1 and S2. No gallops, murmurs, or rubs. Normal PMI, no JVD. No pulse deficits. Respiratory: Lungs have equal breath sounds bilaterally, clear to auscultation and percussion. No rales, rhonchi or wheezes noted. No increased work of breathing, no retractions or nasal flaring. Skin: Warm, dry with normal turgor. Normal color with no rashes, no lesions, and no evidence of cellulitis. Neuro: Awake and alert, GCS 15, oriented to person, place, time, and situation. Cranial nerves II-XII grossly intact. Motor strength 5/5 in all extremities. Sensory grossly intact. Cerebellar exam normal. Normal gait. 12:03 Musculoskeletal/extremity: Well-healed laceration noted to the right second digit, no appreciable swelling, erythema, is able to bend. No pain with passive stretch. Vital Signs: 10:07 BP 157 / 103; Pulse 79; Resp 17; Temp 97.2; Pulse Ox 100% ; Weight 87.54 kg; Height 5 ll1 ft. 2 in. ; Pain 9/10; 10:07 Body Mass Index 35.30 (87.54 kg, 157.48 cm) ll1 10:07 Pain Scale: Adult ll1 MDM: 10:18 Patient medically screened. rt 12:03 Differential diagnosis: Pain, tendinitis, infection. Data reviewed: vital signs, nurses rt notes. Test considered but Not performed: Other Details No new injury, does not have an appearance of a tenosynovitis, imaging, labs not indicated. Administered Medications: 10:47 Drug: Ketorolac IM 15 mg IM once Route: IM; Site: left gluteus; ll1 11:04 Follow up: Response: No adverse reaction ll1 Disposition Summary: 10/04/23 10:20 Discharge Ordered Notes: Location: Home rt Problem: an ongoing problem rt Symptoms: are unchanged rt Condition: Stable rt Diagnosis - Pain to left second finger rt Followup: rt - With: Private Physician - When: 2 - 3 days - Reason: Discharge Instructions: - Discharge Summary Sheet rt - Finger Sprain, Adult rt Forms: - Medication Reconciliation Form rt - Thank You Letter rt - Antibiotic Education rt - Prescription Opioid Use rt - Patient Portal Instructions rt - Leadership Thank You Letter rt Signatures: Kezia Patricia RN RN ll1 Layton Corrigan MD MD rt
[2023-10-04] MEDS ORDERED: KETOROLAC 30 MG/ML INJ ONE (10:55)
[2023-10-04 11:00] VITALS: BP 157/103; TEMP 97.2; O2SAT 100
--- OUTSIDE RECORDS SUMMARY | 2023-10-04 11:14 | XMS REPORT | Continuity of Care Document ---
:1985 Author Organization [facility] t Address [address] [place] [address] Care Team Providers Name Role Phone SU PARRA Primary Care Physician Unavailable Brian Attending Clinician Unavailable AMBROSIO VARGAS Attending Clinician Unavailable MOLLY WOODALL Attending Clinician Unavailable Molly Gifford Attending Clinician Unknown, Attending Attending Clinician Unavailable UNKNOWN, ATTENDING Attending Clinician Unavailable Doctor Unassigned, [place] Attending Clinician Unavailable Adrianna Carmichael NP Attending Clinician ADRIANNA CARMICHAEL Attending Clinician Unavailable Radu Middleton Attending Clinician Marcelo Michaels Attending Clinician Brian Admitting Clinician Unavailable ADRIANNA CARMICHAEL Admitting Clinician Unavailable Marcelo Michaels Admitting Clinician [phone] Payers Payer Name Policy Type Policy Number Effective Date Expiration Date Gina deidrewilliam [facility] - [id number] 2020 [facility] 00:00:00 (MEDICARE REPLACEMENT/ADVANTA GE - HMO) [facility] [id number] 2020 [employer] [place] - 00:00:00 DUAL ELIGIBLE (MEDICARE REPLACEMENT/ADVANTA GE - HMO) [facility] DUAL [id number] 2021 [facility] HMO D SNP 00:00:00 MED[place]ID OF [place] [id number] 2013 00:00:00 Problems Condition Condition Condition Status [...] [place] 00 [place] dical 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 Vitamin D Vitamin D Disease Active Uni vers deficiency deficiency 9-10 it y of , , 00:00: [place] unspecifie unspecifie 00 Me dical d d Branch ACUTE ACUTE Diagnosis Active 2017-102018-09-09 Mem oria APPENDICIT APPENDICIT 0-27 04:25:00 l IS IS Active 00:00: Chad 08/26/2018 00 [facility] No known No known Disease Unive rs active active ity of problems problems [facility] Branch Hypothyroi Hypothyro Problem 2019-03-16 Memoria dism, idism, 11:35:02 l unspecifie unspecifie He rmann d d 03/16/2019 [facility] Pure Pure Problem 2019-03-16 Memor ia hyperchole hyperchole 11:35:02 l sterolemia sterolemia He rmann , , unspecifie unspecifie d d 03/16/2019 [facility] Unspecifie Problem 2019-03-16 M emoria d asthma, Unspecifie 11:35:02 l uncomplica d asthma, Her goodman haleigh uncomplica haleigh 03/16/2019 [facility] Allergy Allergy Problem 2019-03-16 Me moria status to status to 11:35:02 l penicillin penicillin He rmann 9 [facility] Amnesia Amnesia Problem Active 2021-01-01 Me moria (finding) (finding) 23:24:44 l Active [place] Problem 01/01/2021 [facility] Hypertensi Problem Active 2021-01-01 M emoria ve Hypertensi 23:24:44 l disorder, ve [place] systemic disorder, arterial systemic (disorder) arterial (disorder) Active Problem 01/01/2021 [facility] Hyperlipid [...] 2021-01-01 Memoria (disorder) (disorder) 23:24:44 l Active [place] Problem 01/01/2021 [facility] Carbuncle Carbuncle Problem Active Mat ag[facility] da [...] He yajaira is is 50 09/01/2018 03/16/2019 [facility] Allergies, Adverse Reactions, Alerts Allergy Allergy Status Severity Reaction(s) Onset Inactive Treating Comm ents Source Name Type Date Date Clinician Amoxicil Propensi Active Nausea 0 Univer s christine ty to and/or 02-26 [...] 2022-08-13 Not sure University SARS-CoV-2 00:00:00 17:52:00 [place] [facility] (event) Branch Tobacco use and 2022-08-13 2022-08-13 Smokeless tobacco Un iversity of exposure 00:00:00 00:00:00 non-user [facility] Social History 2018-08-27 2018-08-27 Jillian traore 09:20:36 09:20:36 Sex Ass[birth year] At [birth year] Universit y of 00:00:00 00:00:00 [facility] Smoking Status Start Date Stop Date Source Never smoked tobacco [facility] Tobacco smoking consumption Univ ersity of [facility] unknown Branch Medications Ordered Filled Start Stop Current Ordering Indication Dosage Frequency Signature Comments Components Source Medication Medication Date Date Medication? Clinician (SIG) Name Name sulfamethox 2021-10- No [id number] 1{tbl} Take 1 Univers azole-trime 0-14 10-22 tablet by it y of 00:00: 04:59 mouth in [place] (BACTRIM 00 :00 the Medical DS) 800-160 morning Branc h mg per and 1 tablet tablet in the evening. Do all this for 7 days. atorvastati Yes 10mg Take 10 mg Univers n 10 mg 8-23 by mouth ity of tablet 00:00: at [place] 00 bedtime. Medical Branch levothyroxi 2022- No 88ug Take 88 Un gaetano ne 88 mcg 8-13 08-14 mcg by ity of tablet 00:00: 04:59 mouth. [place] 00 :00 Medical Branch montelukast Yes TAKE 1 Univ ers 10 mg 7-22 TABLET BY ity of tablet 00:00: MOUTH ONCE [place] 00 DAILY AT Medical NIGHT Branch Cholecalcif [...] 02/27/21 at Branch 0145, Routine albuterol Yes [id number] 2{puff} Inhale 2 Univers 90 4-30 Puffs ity of mcg/actuati 00:00: every 4 Rajan as on inhaler 00 (four) Medical hours as Branch needed for Wheezing or Shortness of Breath. benzonatate Yes [id number] 100mg Take 1 Univers 100 mg 4-30 capsule by ity of capsule 00:00: mouth 3 [place] 00 (three) Medical times Branch daily as needed for Cough. albuterol Yes [id number] 2{puff} Inhale 2 Univers 90 4-30 Puffs ity of mcg/actuati 00:00: every 4 Rajan as on inhaler 00 (four) Medical hours as Branch needed for Wheezing or Shortness of Breath. benzonatate Yes [id number] 100mg Take 1 Univers 100 mg 4-30 capsule by ity of capsule 00:00: mouth 3 [place] 00 (three) Medical times Branch daily as needed for Cough. albuterol Yes [id number] 2{puff} Inhale 2 Univers 90 4-30 Puffs ity of mcg/actuati 00:00: every 4 Rajan as on inhaler 00 (four) Medical hours as Branch needed for Wheezing or Shortness of Breath. benzonatate Yes [id number] 100mg Take 1 Univers 100 mg 4-30 capsule by ity of capsule 00:00: mouth 3 00 (three) Medical times Branch daily as needed for Cough. predniSONE 2020- No [id number] 20mg Take 1 Univers 20 mg 4-30 05-08 tablet by ity of tablet 00:00: 04:59 mouth [place] 00 :00 daily for Medical 7 days. Branch montelukast 2019-0 Yes 0 Memori a 10 mg oral 8-26 Refill(s) l tablet 20:26: Chad predniSONE 2019-0 Yes 0 Memoria 20 mg oral 8-26 Refill(s) l tablet 20:26: [place] atorvastati 2019-0 Yes 0 Memori a n 10 mg 8-26 Refill(s) l oral tablet 20:26: Kirill n 00 levothyroxi 2019-0 Yes 0 Memori a ne 75 mcg 8-26 Refill(s) l (0.075 mg) 20:26: Chad oral tablet 00 montelukast 2019-0 Yes 0 Memori a 10 mg oral 8-26 Refill(s) l tablet 20:26: predniSONE 2020-0 Yes 0 Memoria 20 mg oral 8-26 Refill(s) l tablet 20:26: atorvastati 2020-0 Yes 0 Memori a n 10 mg 8-26 Refill(s) l oral tablet 20:26: Kirill n levothyroxi 2020-0 Yes 0 Memori a ne 75 mcg 8-26 Refill(s) l (0.075 mg) 20:26: oral tablet montelukast 2019-0 Yes 0 Memori a 10 mg oral 8-26 Refill(s) l tablet 20:26: predniSONE 2019-0 Yes 0 Memoria 20 mg oral 8-26 Refill(s) l tablet 20:26: atorvastati 2019-0 Yes 0 Memori a n 10 mg 8-26 Refill(s) l oral tablet 20:26: [facility] levothyroxi 2019-0 Yes 0 Memori a ne 75 mcg 8-26 Refill(s) l (0.075 mg) 20:26: oral tablet montelukast 2019-0 Yes 0 Memori a 10 mg oral 8-26 Refill(s) l tablet 20:26: predniSONE 2019-0 Yes 0 Memoria 20 mg oral 8-26 Refill(s) l tablet 20:26: atorvastati 2019-0 Yes 0 Memori a n 10 mg 8-26 Refill(s) l oral tablet 20:26: Kirill levothyroxi 2019-0 Yes 0 Memori a ne 75 mcg 8-26 Refill(s) l (0.075 mg) 20:26: oral tablet montelukast 2020-0 Yes 0 Memori a 10 mg oral 8-26 Refill(s) l tablet 20:26: predniSONE 2020-0 Yes 0 Memoria 20 mg oral 8-26 Refill(s) l tablet 20:26: atorvastati 2020-0 Yes 0 Memori a n 10 mg 8-26 Refill(s) l oral tablet 20:26: Kirill levothyroxi 2019-0 Yes 0 Memori a ne 75 mcg 8-26 Refill(s) l (0.075 mg) 20:26: [place] oral tablet 00 atorvastati 2017-10 No Notes: Gerson cathy n 0-29 (Same As: l 02:00: Lipitor) Chad atorvastati 2017-10 No Notes: Gerson cathy n 0-29 (Same As: l 02:00: Lipitor) Chad atorvastati 2017-10 No Notes: Gerson cathy n 0-29 (Same As: l 02:00: Lipitor) Chad atorvastati 2017-10 No Notes: Gerson cathy n 0-29 (Same As: l 02:00: Lipitor) Chad atorvastati 2017-10 No Notes: Gerson cathy n 0-29 (Same As: l 02:00: Lipitor) [place] albuterol 2017-10 No Notes: SEE Me moria 0-28 RT l 14:07: DOCUMENTAT Chad 00 ION (Same as: Proventil) albuterol 2017-10 No Notes: SEE Me moria 0-28 RT l 14:07: DOCUMENTAT Chad 00 ION (Same as: Proventil) albuterol 2017-10 No Notes: SEE Me moria 0-28 RT l 14:07: DOCUMENTAT [place] 00 ION (Same as: Proventil) albuterol 2017-10 No Notes: SEE Me moria 0-28 RT l 14:07: DOCUMENTAT Chad 00 ION (Same as: Proventil) albuterol 2017-10 No Notes: SEE Me moria 0-28 RT l 14:07: DOCUMENTAT [place] 00 ION (Same as: Proventil) montelukast 2017-10 No Notes: Gerson cathy 0-28 (Same l 14:00: as:Singula [place] 00 ir) Thyroxine 2017-10 No Notes: Memori a 0-28 Take 1 l 14:00: hour Chad 00 before or 2 hours after meal; Enteral feeds may interefere with the absorption of this medication . (Same as:Synthro id, Levothroid ) montelukast 2017-10 No Notes: Gerson cathy 0-28 (Same l 14:00: as:Singula [place] 00 ir) Thyroxine 2017-10 No Notes: Memori [...] a 0-28 Take 1 l 14:00: hour [place] 00 before or 2 hours after meal; Enteral feeds may interefere with the absorption of this medication . (Same as:Synthro id, Levothroid ) montelukast 2017-10 No Notes: Gerson cathy 0-28 (Same l 14:00: as:Singula [place] 00 ir) Thyroxine 2017-10 No Notes: Memori [...] a 0-28 Take 1 l 14:00: hour [place] 00 before or 2 hours after meal; Enteral feeds may interefere with the absorption of this medication . (Same as:Synthro id, Levothroid ) dexamethaso 2017-10 No Route: IV, Memoria ne [...] ONCE Gerson cathy (ANES) 0-28 l 13:58: [place] 00 glycopyrrol 2017-10 No Route: IV, Memoria [...] Memoria 0-28 Preservati l 13:57: ve free. [place] 00 (Same as: Morphine Sulfate-PF ) 200 ACTUAT 2017-10 No 180 Memoria Albuterol 0-28 microgram, l 0.09 13:57: 2 puff, [place] MG/ACTUAT 00 Route: Metered INHALER, Dose Drug Form: Inhaler AERO/A, [ProAir Dosing HFA] Weight 86.818, kg, Q4H, PRN Pain Score 1-3, Start date: 08/27/18 8:57:00 CDT, Duration: 30 day, Stop date: 09/26/18 8:56:00 BAND STRAIGHTENER Acetaminoph 2017-10 No Notes: Do M emoria en 300 MG / 0-28 not exceed l Codeine 13:57: 4gm/day of Herm alf Phosphate 00 acetaminop 30 MG Oral hen. (Same Tablet as: [Tylenol Tylenol with with Codeine #3] Codeine # 3) Morphine 2017-10 No Notes: Memoria 0-28 Preservati l 13:57: ve free. [place] 00 (Same as: Morphine Sulfate-PF ) 200 ACTUAT 2017-10 No 180 Memoria Albuterol 0-28 microgram, l 0.09 13:57: 2 puff, [place] MG/ACTUAT 00 Route: Metered INHALER, Dose Drug Form: Inhaler AERO/A, [ProAir Dosing HFA] Weight 86.818, kg, Q4H, PRN Pain Score 1-3, Start date: 08/27/18 8:57:00 CDT, Duration: 30 day, Stop date: 09/26/18 8:56:00 BAND STRAIGHTENER Acetaminoph 2017-10 No Notes: Do M emoria [...] 0-28 microgram, l 0.09 13:57: 2 puff, [place] MG/ACTUAT 00 Route: Metered INHALER, Dose Drug Form: Inhaler AERO/A, [ProAir Dosing HFA] Weight 86.818, kg, Q4H, PRN Pain Score 1-3, Start date: 08/27/18 8:57:00 CDT, Duration: 30 day, Stop date: 09/26/18 8:56:00 BAND STRAIGHTENER Acetaminoph 2017-10 No Notes: Do M emoria [...] Duration: 30 day, Stop date: 09/26/18 8:56:00 BAND STRAIGHTENER Acetaminoph 2017-10 No Notes: Do M emoria [...] 0-28 microgram, l 0.09 13:57: 2 puff, [place] MG/ACTUAT 00 Route: Metered INHALER, Dose Drug Form: Inhaler AERO/A, [ProAir Dosing HFA] Weight 86.818, kg, Q4H, PRN Pain Score 1-3, Start date: 08/27/18 8:57:00 CDT, Duration: 30 day, Stop date: 09/26/18 8:56:00 BAND STRAIGHTENER clindamycin 2017-10 No Route: IV, Memoria (ANES) 0-28 Drug form: l 13:45: INJ, ONCE, Stop date: 08/27/18 8:45:00 CDT clindamycin 2018 No Route: IV, Memoria (ANES) 0-28 Drug form: l 13:45: INJ, ONCE, Stop date: 08/27/18 8:45:00 CDT clindamycin 2018 No Route: IV, Memoria (ANES) 0-28 Drug form: l 13:45: INJ, ONCE, Stop date: 08/27/18 8:45:00 CDT clindamycin 2018 No Route: IV, Memoria (ANES) 0-28 Drug form: l 13:45: INJ, ONCE, Stop date: 08/27/18 8:45:00 CDT clindamycin 2018 [...] ONCE, Stop date: 08/27/18 8:40:00 CDT propofol 2018- No Route: IV, Mem oria (ANES) 0-28 [...] (ANES) 0-28 Drug form: l 13:35: SOLN, [place] 00 ONCE, Stop date: 08/27/18 8:35:00 CDT lidocaine 2017-10 No Route: IV, Me moria (ANES) 0-28 Drug form: l 13:35: INJ, ONCE, [place] Stop date: 08/27/18 8:35:00 CDT midazolam 2017-10 No Route: IV, Me moria (ANES) 0-28 Drug form: l 13:35: SOLN, Chad 00 ONCE, Stop date: 08/27/18 8:35:00 CDT lidocaine 2018 No Route: IV, Me moria (ANES) 0-28 Drug form: l 13:35: INJ, ONCE, [place] Stop date: 08/27/18 8:35:00 CDT midazolam 2018 No Route: IV, Me moria (ANES) 0-28 Drug form: l 13:35: SOLN, Chad 00 ONCE, Stop date: 08/27/18 8:35:00 CDT lidocaine 2018 No Route: IV, Me moria (ANES) 0-28 Drug form: l 13:35: INJ, ONCE, [place] Stop date: 08/27/18 8:35:00 CDT midazolam 2018 No Route: IV, Me moria (ANES) 0-28 Drug form: l 13:35: SOLN, [place] 00 ONCE, Stop date: 08/27/18 8:35:00 CDT lidocaine 2018 No Route: IV, Me moria (ANES) 0-28 Drug form: l 13:35: INJ, ONCE, [place] 00 Stop date: 08/27/18 8:35:00 CDT midazolam [...] CDT, Stop date: 08/27/18 8:53:00 CDT influenza 2018 No Notes: Memori a virus 0-28 (Same as: l vaccine, 09:28: Fluzone Kirill n inactivated 52 Quadrivale nt, Fluarix Quadrivale nt) For 3 years of age and older (0.5 mL IM) Shake well before use influenza 2017-10 No Notes: Memori a virus 0-28 (Same as: l vaccine, 09:28: Fluzone Kirill n inactivated 52 Quadrivale nt, [...] Memoria 0-28 microgram, l 09:24: PO, Daily, [place] 00 0 Refill(s) 200 ACTUAT 2017-10 Yes 2 puff, Gerson cathy Albuterol 0-28 INHALER, l 0.09 09:24: Q4H, PRN Chad MG/ACTUAT 00 wheezing, Metered coughing, Dose or Inhaler shortness [ProAir of breath, HFA] # 1 ea, 1 Refill(s) montelukast 2017-10 Yes 10 mg, PO, Memoria 0-28 Daily, 0 l 09:24: Refill(s) [place] atorvastati 2017-10 Yes 10 mg, PO, Memoria n 0-28 Bedtime, 0 l 09:24: Refill(s) Chad Thyroxine 2017-10 Yes 75 Memoria 0-28 microgram, l 09:24: PO, Daily, Chad 00 0 Refill(s) 200 ACTUAT 2017-10 Yes 2 puff, Gerson cathy Albuterol 0-28 INHALER, l 0.09 09:24: Q4H, PRN [place] MG/ACTUAT 00 wheezing, Metered coughing, Dose or Inhaler shortness [ProAir of breath, HFA] # 1 ea, 1 Refill(s) montelukast 2017-10 Yes 10 mg, PO, Memoria 0-28 Daily, 0 l 09:24: Refill(s) [place] 00 atorvastati 2017-10 Yes 10 mg, PO, Memoria n 0-28 Bedtime, 0 l 09:24: Refill(s) [place] Thyroxine 2017-10 Yes 75 Memoria 0-28 microgram, l 09:24: PO, Daily, [place] 00 0 Refill(s) 200 ACTUAT 2017-10 Yes 2 puff, Gerson cathy Albuterol 0-28 INHALER, l 0.09 09:24: Q4H, PRN Chad MG/ACTUAT 00 wheezing, Metered coughing, Dose or Inhaler shortness [ProAir of breath, HFA] # 1 ea, 1 Refill(s) montelukast 2017-10 Yes 10 mg, PO, Memoria 0-28 Daily, 0 l 09:24: Refill(s) [place] atorvastati 2017-10 Yes 10 mg, PO, Memoria n 0-28 Bedtime, 0 l 09:24: Refill(s) Chad Thyroxine 2017-10 Yes 75 Memoria 0-28 microgram, l 09:24: PO, Daily, [place] 00 0 Refill(s) 200 ACTUAT 2017-10 Yes 2 puff, Gerson cathy Albuterol 0-28 INHALER, l 0.09 09:24: Q4H, PRN [place] MG/ACTUAT 00 wheezing, Metered coughing, Dose or Inhaler shortness [ProAir of breath, HFA] # 1 ea, 1 Refill(s) montelukast 2017-10 Yes 10 mg, PO, Memoria 0-28 Daily, 0 l 09:24: Refill(s) [place] 00 atorvastati 2017-10 Yes 10 mg, PO, Memoria n 0-28 Bedtime, 0 l 09:24: Refill(s) [place] Thyroxine 2017-10 Yes 75 Memoria 0-28 microgram, l 09:24: PO, Daily, [place] 00 0 Refill(s) atorvastati atorvastati No atorvastat [...] Source BP Diastolic 2022-09-13 00:00:00 76 mm[Hg] [facility] Height 2022-09-13 00:00:00 62 [in_i] [facility] BMI (Body Mass 2022-09-13 00:00:00 33.1 kg/m2 [facility] Group BP Systolic 2022-09-13 00:00:00 132 mm[Hg] [facility] Body Weight 2022-09-13 00:00:00 181 [lb_av] [facility] BP Diastolic 2022-08-23 00:00:00 87 mm[Hg] [facility] Height 2022-08-23 00:00:00 62 [in_i] [facility] BMI (Body Mass 2022-08-23 00:00:00 33.1 kg/m2 [facility]) Group BP Systolic 2022-08-23 00:00:00 133 mm[Hg] [facility] Body Weight 2022-08-23 00:00:00 181 [facility] Systolic blood 2022-08-13 23:02:00 121 mm[Hg] [facility] Diastolic blood 2022-08-13 23:02:00 79 mm[Hg] [facility]ive [facility] Heart rate 2022-08-13 23:02:00 86 /min [facility] Body temperature 2022-08-13 23:02:[address] [facility] Res[facility] rate 2022-08-13 23:02:00 18 /min [facility] Body height 2022-08-13 23:02:00 157.5 cm [facility] Body weight 2022-08-13 23:02:00 81.761 kg [facility] BMI 2022-08-13 23:02:00 32.97 kg/m2 [facility] Oxygen saturation in 2022-08-13 23:02:00 97 /min [facility] blood by [facility] Pulse oximetry Branch Systolic blood 2021-02-27 07:01:48 133 mm[Hg] Univer sity of pressure [facility] Diastolic blood 2021-02-27 07:01:48 85 mm[Hg] Unive rsity of pressure [facility] Heart rate 2021-02-27 07:01:48 76 /min [facility] Respiratory rate 2021-02-27 07:01:48 19 /min [facility] Oxygen saturation in 2021-02-27 07:01:48 98 /min [facility] Arterial blood by [facility] Pulse oximetry Branch Body temperature 2021-02-27 02:47:[address] [facility] Body height 2021-02-27 02:47:00 157.5 cm [facility] Body weight 2021-02-27 02:47:00 86.637 kg [facility] BMI 2021-02-27 02:47:00 34.93 kg/m2 [facility] Systolic (mm Hg) 2020-09-02 20:31:00 Gerson rial [place] Diastolic (mm Hg) 2020-09-02 20:31:00 Mem orial [place] Heart Rate 2020-09-02 20:31:00 [facility] [place] Respitory Rate 2020-09-02 20:31:00 Memori al [place] Height 2020-09-02 20:31:00 [facility] 2020-09-02 20:31:00 [facility] [place] BMI Calculated 2020-09-02 20:31:00 Memori al [place] Systolic (mm Hg) 2020-08-01 20:24:00 Gerson rial [place] Diastolic (mm Hg) 2020-08-01 20:24:00 Mem orial [place] Heart Rate 2020-08-01 20:24:00 [facility] [place] Respitory Rate 2020-08-01 20:24:00 Memori al [place] Height 2020-08-01 20:24:00 157[facility]48 [facility] 2020-08-01 20:24:00 [facility] [place] BMI Calculated 2020-08-01 20:24:00 Memori al [place] Systolic (mm Hg) 2020-06-25 20:18:00 Gerson rial [place] Diastolic (mm Hg) 2020-06-25 20:18:00 Mem orial [place] Heart Rate 2020-06-25 20:18:00 [facility] [place] Respitory Rate 2020-06-25 20:18:00 Memori al [place] Height 2020-06-25 20:18:00 157.48 cm [facility] [place] Weight 2020-06-25 20:18:00 [facility] [place] BMI Calculated 2020-06-25 20:18:00 Memori al [place] Systolic (mm Hg) 2018-08-27 21:00:00 Gerson rial [place] Diastolic (mm Hg) 2018-08-27 21:00:00 Mem orial [place] Respitory Rate 2018-08-27 21:00:00 Memori al [place] Heart Rate 2018-08-27 21:00:00 [facility] [place] Temperature Oral (F) 2018-08-27 21:00:00 98.4 F [facility] [place] Heart Rate 2018-08-27 17:00:00 [facility] [place] Temperature Oral (F) 2018-08-27 17:00:00 98.1 F [facility] [place] Systolic (mm Hg) 2018-08-27 17:00:00 Gerson rial [place] Diastolic (mm Hg) 2018-08-27 17:00:00 Mem orial [place] Respitory Rate 2018-08-27 17:00:00 Memori al [place] Systolic (mm Hg) 2018-08-27 15:35:00 Gerson rial [place] Diastolic (mm Hg) 2018-08-27 15:35:00 Mem orial [place] Respitory Rate 2018-08-27 15:35:00 Memori al [place] Temperature Oral (F) 2018-08-27 11:41:00 98.9 F [facility] [place] Heart Rate 2018-08-27 11:41:00 [facility] [place] BMI Calculated 2018-08-27 09:22:00 Memori al [place] Height 2018-08-27 09:22:00 157.48 cm [facility] [place] Weight 2018-08-27 09:22:00 [facility] [place] Procedures Procedure Date / Time Performing Clinician Source Performed ASSIGNMENT OF BENEFITS 2022-08-13 22:52:32 Doctor Unassigned, [facility] [place] [facility] XR CHEST 1 VW 2021-02-27 05:53:31 Adrianna Carmichael [facility] COVID-19 (ID NOW RAPID 2021-02-27 05:45:00 Adrianna Carmichael [facility] TESTING) Medical Branch NOTICE OF PRIVACY 2021-02-27 02:35:47 Doctor Unassigned, [facility] PRACTICES [facility] CONSENT/REFUSAL FOR 2021-02-27 02:35:09 Doctor Unassigned, [facility] DIAGNOSIS AND TREATMENT [facility] Other 2010-03-02 00:00:00 [facility] Cholecystectomy [facility] Excision of cyst of breast [facility] Appendectomy [facility] Plan of Care Planned Activity Planned Date Details Comments Source Instructions [facility] Encounters Start End Encounter Admission Attending Care Care Encounter Source Date/Time Date/Time Type Type Clinicians Facility Department ID 2022-09-14 2022-09-14 [id number] [place] 00:00:00 00:00:00 [facility] 2022-09-14 2022-09-14 [place] [id number] [place] 00:00:00 00:00:00 [facility] 2022-09-13 2022-09-13 [place] [id number] [place] 00:00:00 00:00:00 [facility] 2022-09-13 2022-09-13 Ambrosio [facility] [place] - [id number] M atagor 00:00:00 00:00:00 Gucci DO: [facility] [address] [place] [address] Group Formerly [facility], [facility] [address] [facility], [facility] [address] , Ph. [phone] 2022-09-10 2022-09-10 [place] [id number] [place] 00:00:00 00:00:00 [facility] 2022-09-07 2022-09-07 [place] [id number] [place] 00:00:00 00:00:00 [facility] 2022-08-27 2022-08-27 Outpatient EDWARD HEBERT [facility] [id number] [place] 06:19:00 06:19:00 AMBROSIO -[id number] [facility] 2022-08-23 2022-08-23 Outpatient Brian [facility] [id number] [place] 00:00:00 00:00:00 1024 Medical [facility] 2022-08-23 2022-08-23 Ambrosio CO[place] - [id number] M atagor 00:00:00 00:00:00 Gucci DO: [facility] [address] [place] [address] Network [facility] [place] - [address], [facility], [place] [address] , Ph. [phone] 2022-08-20 2022-08-20 Outpatient Brian [facility]EP[facility]A [facility] [id number] [place] 00:00:00 00:00:00 1021 [facility] 2022-08-13 2022-08-13 Outpatient R TALISHA, [facility] [id number] Univers 18:00:00 18:18:02 MOLLY saab o f [facility] 2022-08-13 2022-08-13 Urgent Molly Woodall [facility] [id number] Univers 18:00:00 18:18:02 Care Unknown, Attending [facility] [id number] ity [facility] [id number] Rajan as LEX?BLEA [phone] [address] MEDICAL OFFICE BUILDING 2022-08-13 2022-08-13 Outpatient R UNKNOWN, [facility] [id number] Univers 18:00:00 18:00:00 ATTENDING ity [facility] 2022-08-13 2022-08-13 Outpatient R UNKNOWN, [facility] [id number] Univers 18:00:00 18:00:00 [facility] 2022-08-13 2022-08-13 Orders Doctor VILLEDA [id number] Univers 00:00:00 00:00:00 Only Unassigned, CHRISTIANO [id number] [place] [facility] [id number] Rajan as [phone] [address] 2021-02-26 2021-02-[address] [facility] [id number] Univers 21:51:00 02:05:00 Adrianna Velasquez [id number] dannadelfo [facility] [id number] [facility] [phone] [address] 2021-02-26 2021-02-27 Emergency X [facility] ERT [id number] 21:51:00 02:05:00 ADRIANNA saab [facility] 2020-12-30 2020-12-30 Ambulatory nullFlavo MNA [id number] Memoria 20:30:00 20:30:00 Pre-Reg r Neurology 04 l [place] 2020-12-30 2020-12-30 Ambulatory nullFlavo MNA [id number] Memoria 20:30:00 20:30:00 Pre-Reg r Neurology 04 l Radha Bonilla 2020-12-30 2020-12-30 Outpatient MHIE MHIE [id number] Memoria 14:30:00 14:30:00 04 l [place] 2020-12-30 2020-12-30 Outpatient Kane, MHMISCHER MHMISCHER [id number] 14:30:00 14:30:00 Radu 04 Lauri 2020-09-02 2020-09-03 Outpatient nullFlavo MNA [id number] Memoria 20:30:00 05:59:59 r Neurology 03 l Radha Bonilla 2020-09-02 2020-09-03 Outpatient nullFlavo MNA [id number] Memoria 20:30:00 05:59:59 r Neurology 03 l Radha Bonilla 2020-09-02 2020-09-02 Outpatient Kane, MISCHER MHMISCHER [id number] 14:30:00 23:59:59 Radu 03 Lauri 2020-09-02 2020-09-02 Outpatient MHIE MHIE [id number] Memoria 14:30:00 14:30:00 03 pipe [place] 2020-08-05 2020-08-06 Outpatient nullFlavo MNA [id number] Memoria 19:00:00 04:59:59 r Neurology 02 l Radha Bonilla 2020-08-05 2020-08-06 Outpatient nullFlavo MNA [id number] Memoria 19:00:00 04:59:59 r Neurology 02 l [place] 2020-08-05 2020-08-05 [facility] [id number] 14:00:00 23:59:59 Radu 02 [facility] 2020-08-05 2020-08-05 Outpatient MHIE MHIE [id number] Memoria 14:00:00 14:00:00 02 l [place] 2020-08-01 2020-08-02 Outpatient nullFlavo MNA [id number] Memoria 20:30:00 04:59:59 r Neurology 01 l [place] 2020-08-01 2020-08-02 Outpatient nullFlavo MNA [id number] Memoria 20:30:00 04:59:59 r Neurology 01 l [place] 2020-08-01 2020-08-01 Out[facility] [id number] 15:30:00 23:59:59 Radu [facility] 2020-08-01 2020-08-01 Outpatient MHIE MHIE [id number] Memoria 15:30:00 15:30:00 01 l [place] 2020-06-25 2020-06-26 Outpatient nullFlavo MNA [id number] Memoria 20:15:00 04:59:59 r Neurology 00 l [place] 2020-06-25 2020-06-26 Outpatient nullFlavo MNA [id number] Memoria 20:15:00 04:59:59 r Neurology 00 l [facility] 2020-06-25 2020-06-25 Out[facility] [id number] 15:15:00 23:59:59 Radu 00 [facility] 2020-06-25 2020-06-25 Outpatient MHIE MHIE [id number] Memoria 15:15:00 15:15:00 00 [facility] 2018-08-27 2018-08-27 Bedded nullFlavo [facility] [id number] Memoria 20:07:00 22:00:00 Outpatient r [place] 01 [facility] 2018-08-27 2018-08-27 Bedded nullFlavo [facility] [id number] Memoria 20:07:00 22:00:00 Outpatient r [place] 01 [facility] 2018-08-27 2018-08-27 Outpatient SURJIT Michaels [facility] [id number] 15:07:00 17:00:00 [place] 01 [place] 2017-01-30 2017-01-30 Outpatient Young_J [facility] [id number] [place] 00:00:00 00:00:00 [id number] [facility] Results Test Description Test Time Test Comments Results Result Comments Source COVID-19 (ID NOW RAPID TESTING) 2021-02-27 06:08:44 Test Item Value Reference Range Interpretation Comme nts SARS-CoV-2 Rapid ID NOW (test code Not Detected Not Detected = 57899-6) ABHINAV (test code = ABHINAV) ID NOW COVID-19 Assay is an isothermal nucleic acid amplification test intended for the qualitative detection of nucleic acid from SARS-CoV-2 viral RNA in nasopharyngeal ([employer]) specimens. It is used under Emergency Use [...] indicated. Lab Interpretation (test code = Normal 42278-8) [facility]
== END 2023-10-04 10:53 | disposition home or self-care (01) ==
LOC: ER 09:13
DX: M79.644 Pain in right finger(s) (principal)
CPT/HCPCS: 96372; 99284